=== PATIENT | male | born 1945 | race Caucasian/White ===

== ENCOUNTER 2016-11-02 08:48 | Outpatient (CLI) | payer MEDICARE | END 2016-11-02 08:49 | disposition home or self-care (01) | DX: Z85.048 Personal history of other malignant neoplasm of rectum, rectosigmoid junction, and anus (principal); Z86.010 Personal history of colon polyps ==

== ENCOUNTER 2016-12-21 07:58 | Outpatient (CLI) | payer MEDICARE ==
[2016-12-21] MEDS ORDERED: IOPAMIDOL-300 50 ML VIAL PO ONE (09:45)
[2016-12-21] MEDS ORDERED: IOPAMIDOL-300 100 ML VIAL IVP ONE (09:45)
== END 2016-12-21 07:59 | disposition home or self-care (01) ==
DX: R19.09 Other intra-abdominal and pelvic swelling, mass and lump (principal); K76.9 Liver disease, unspecified; M89.8X8 Other specified disorders of bone, other site
CPT/HCPCS: 36415; 74177; 82565; Q9967

== ENCOUNTER 2018-03-10 15:37 | Inpatient (IN) | payer MEDICARE, OTHER ==
[2018-03-10] MEDS ORDERED: ONDANSETRON 4 MG/2 ML VIAL IVP PRN (16:02)
[2018-03-10] MEDS ORDERED: PROCHLORPERAZINE 10 MG/2 ML VIAL IVP PRN (16:02)
[2018-03-10] MEDS ORDERED: ACETAMINOPHEN 325 MG TABLET PO PRN (16:02)
[2018-03-10] MEDS ORDERED: ZOLPIDEM 5 MG TABLET PO PRN (16:02)
--- NOTE | 2018-03-10 16:15 | HISTORY & PHYSICAL EXAMINATION ---
Chief Complaint - Chief Complaint Chief Complaint: loss of appetite History of Present Illness - Admitted From Admitted From:: [facility] - History Obtained From History obtained from: pt - History of Present Illness HPI Comment/Other: Mr. 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 Pt has been treated 8 cycles of chemotherapy, then he had on chemotherapy holiday. CT on January of 2018 showed he had mild progression in the liver and lung masses, thus he started on new chemotherapy. He finished the two cycles of new treatment. Then he developed loss of appetite. For 5 days, he only drunk some juice and water, no other foods. He also developed nausea and diarrhea since this new treatment. Pt denies fever, chill, cough, chest pain, shortness of breath, abdominal pain, headache, vision changing, dysuria, hemotauria, GI bleeding. Pt is directly admitted from [facility] for observation. History - Past Medical History Cardiovascular: reports: Hypertension Respiratory: reports: None Endocrine/Autoimmune: reports: None GI: reports: None : reports: None HEENT: reports: None Psych: reports: None Musculoskeletal: reports: None Derm: reports: None MRSA Hx?: No - Family & Social History Family History: Mother: (Dad was from blood disorder at ago 75 yrs ), CAD, Father: Family History Comment/Other: Pt is living with his at [place]. Pt had two children. Living arrangement: At home Living Situation: With spouse/s.o. Social History Notes: pt deneis cigarette smoking, alcohol and drug abuse. 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 - Substance History Use: Uses substance without health or social issues: NONE Abuse: Recurrent use of substance despite neg consequences: NONE Dependence: Experiences withdrawal or developed tolerances: NONE - POLST POLST Status: DNR Meds/Allgy - Home Medications Home Medications: Ambulatory Orders Medication Instructions Recorded Confirmed Cholecalciferol (Vitamin D3) 2,000 unit PO DAILY 04/26/17 03/10/18 [Vitamin D] Loperamide [Imodium] 2 mg PO DAILY 04/26/17 03/10/18 Magnesium Oxide [Magnesium] 400 mg PO DAILY 04/26/17 03/10/18 LORazepam [Ativan] 0.5 mg PO Q6H PRN #30 tablet 03/08/18 03/10/18 Cyanocobalamin (Vitamin B-12) 5,000 mcg PO DAILY 03/10/18 03/10/18 [Vitamin B-12] Lidocaine/Prilocaine [Lido-Prilo 1 applic TOP PRN PRN 03/10/18 03/10/18 Joey Pack] Lisinopril [Zestril] 5 mg PO DAILY 03/10/18 03/10/18 Ondansetron [Ondansetron Odt] 8 mg PO Q8H PRN 03/10/18 03/10/18 Prochlorperazine [Compazine] 5 - 10 mg PO Q6H PRN 03/10/18 03/10/18 hydroCHLOROthiazide 25 mg PO DAILY 03/10/18 03/10/18 [Hydrochlorothiazide] - Allergies Allergies/Adverse Reactions: Allergies Allergy/AdvReac Type Severity Reaction Status Date / Time No Known Drug Allergies Allergy Verified 01/02/15 16:08 Review of Systems - Constitutional Constitutional: reports: Fatigue, Weakness, Poor appetite. denies: Fever, Chills, Malaise, Diaphoresis, Night sweats - Eyes Eyes: denies: Pain, Irritation, Amaurosis, Blurred vision, Spots in vision, Field loss, Vision loss, Dipolpia - Ears, Nose & Throat Ears, Nose & Throat: denies: Ear pain, Hearing loss, Tinnitus, Vertigo, Nasal pain, Nasal discharge, Nosebleeds, Nasal obstruction, Postnasal drainage, Sore throat, Mouth lesions, Bleeding gums - Cardiovascular Cariovascular: denies: Irregular heart rate, Palpitations, Chest pain, Edema, Lightheadedness, Syncope, Exertional dyspnea, Decr. exercise tolerance - Respiratory Respiratory: denies: Cough, Sputum production, Wheezing, Snoring, Hemoptysis, Orthopnea, SOB at rest, SOB with exertion - Gastrointestinal Gastrointestinal: reports: Diarrhea, Nausea, Poor appetite. denies: Abdominal pain, Abdominal distention, Constipation, Change in bowel habits, Rectal bleeding, Black stools, Bloody stools, Vomiting, Bile emesis, Gomez blood emesis , Coffee grounds emesis, Reflux/heartburn, Bloating - Genitourinary Genitourinary: denies: Dysuria, Frequency, Urgency, Hematuria, Incontinence, Flank pain, Nocturia, Urethral discharge - Musculoskeletal Musculoskeletal: denies: Muscle pain, Back pain, Muscle aches, Stiffness, Limited range of motion, Muscle weakness, Gout, Joint pain - Integumentary Integumentary: denies: Rash, Pruritis, Lesions, Lumps, Pigment changes - Neurological Neurological: reports: General weakness. denies: Focal weakness, Headache, Dizziness, Numbness, Memory problems, Pre-existing deficit, Abnormal gait, Seizures, Incoordination, Slurred speech - Psychiatric Psychiatric: denies: Depression, Anxiety, Suicidal, Delusions, Hallucinations, Homicidal - Endocrine Endocrine: denies: Polyuria, Polydypsia, Polyphagia, Intolerance to cold - Hematologic/Lymphatic Hematologic/Lymphatic: denies: Anemia, Bruising, Petechiae, Blood clots, Lymphadenopathy, Bleeding tendencies, Recurrent infections Exam - Vital Signs Reviewed Vital Signs: Yes - Physical Exam General Appearance: positive: No acute distress, Alert. negative: Lethargic Eyes Bilateral: positive: Normal inspection, PERRL, No lid inflammation, Conjunctivae nml ENT: positive: ENT inspection nml, Pharynx nml, No signs of dehydration. negative: Purulent nasal drainage, Pharyngeal erythema, Oral lesions Neck: positive: Nml inspection, Thyroid nml, No JVD, Trachea midline. negative : Thyromegaly, Lymphadenopathy (R), Lymphadenopathy (L), Stiff neck, Carotid bruit, Swelling/bruising, Tracheal deviation Respiratory: positive: Chest non-tender, No respiratory distress, Breath sounds nml. negative: Wheezes, Rales, Rhonchi Cardiovascular: positive: Regular rate & rhythm, No murmur, No gallop. negative : Irregularly irregular, Extrasystoles, Tachycardia, Bradycardia, Systolic murmur, Diastolic murmur Peripheral Pulses: positive: 2+ Abdomen: positive: Non-tender, No organomegaly, Nml bowel sounds, No distention. negative: Tenderness, Guarding, Rebound Back: positive: Nml inspection. negative: CVA tenderness (R), CVA tenderness (L ) Skin: positive: Color nml, No rash, Warm, Dry. negative: Cyanosis, Diaphoresis , Pallor Extremities: positive: Non-tender, Full ROM, Nml appearance. negative: Calf tenderness, Joint swelling, Alee's sign/cords Neurologic/Psychiatric: positive: Oriented x3, Sensation nml, Mood/affect nml. negative: Sensory loss, Facial droop, Slurred/abnml speech, Depressed mood/ affect Conclusion/Plan - Problem List (1) Loss of appetite Conclusion/Plan: it appear from ongoing chemotherapy and metastatic cancer D5 NS with 20 meq KCL liquid diet advanced as tolerated daily lab monitor, pre-albumin (2) Malnutrition Conclusion/Plan: it appear from ongoing chemotherapy and metastatic cancer. consult mid wife, follow up support test pre-albumin (3) Neutropenia Conclusion/Plan: WBC 1.8 today, neutropenia precaution. pt denies fever, chill. (4) Rectal cancer metastasized to liver Conclusion/Plan: follow up out-pt oncologist support (6) Hypomagnesemia Conclusion/Plan: replacement of Mag, check (7) Hyponatremia Conclusion/Plan: it appears hypovolume hyponatremia IVF of D5 NS lab monitor (8) Nausea Conclusion/Plan: antiemesis PRN, evaluation and treatment underline medical issue (9) Diarrhea Conclusion/Plan: it appears from chemotherapy side effect Imodium PRN, resome home meds support, IVF D5 NS continue lab monitor (10) DVT prophylaxis Conclusion/Plan: SCD and Lovenox, pt has metastatic rectal cancer - Lab Results Fish Bones: 03/11/18 06:15 03/11/18 06:15 Core Measures - Anticipated LOS I expect patient to be DC'd or transferred within 96 hours.: Yes - DVT/VTE - Prophylaxis VTE/DVT Device ordered at admit?: Yes VTE/DVT Prophylaxis med ordered at admit?: Yes
[2018-03-10] MEDS ORDERED: DEXTROSE 5%-0.45% NACL 1,000 ML IV SCH (17:00)
[2018-03-10] MEDS ORDERED: GI COCKTAIL 120 ML BOTTLE PO PRN (17:25)
[2018-03-10] MEDS: SODIUM CHLORIDE FLUSH 0.9% 10 ML SYRINGE IVP SCH (17:29)
[2018-03-10 17:39] LABS: BASOPHILS % (AUTO) 0.1 %; EOSINOPHILS % (AUTO) 0.2 %; HGB - HEMOGLOBIN 10.2 g/dL (14.0-18.0); LYMPHOCYTES % (AUTO) 6.9 %; MEAN CORPUSCULAR HGB CONC 33.2 g/dL (32.0-36.0); MEAN CORPUSCULAR VOLUME 93.4 fL (80.0-94.0); MEAN PLATELET VOLUME 7.5 fL (7.4-11.4); MONOCYTES % (AUTO) 24.9 %; NEUTROPHILS % (AUTO) 67.9 %; PLT - PLATELET COUNT 192 10^3/uL (130-450); RED BLOOD COUNT 3.29 10^6/uL (4.70-6.10); RED CELL DISTRIBUTION WIDTH 12.8 % (12.0-15.0)
[2018-03-10 17:51] LABS: ALBUMIN 2.6 g/dL (3.2-5.5); BILIRUBIN,TOTAL 0.9 mg/dL (0.2-1.0); CALCIUM 7.7 mg/dL (8.5-10.3); CREATININE 1.8 mg/dL (0.6-1.2); MAGNESIUM 1.6 mg/dL (1.7-2.8); PHOSPHORUS 3.2 mg/dL (2.5-4.6); TOTAL PROTEIN 5.3 g/dL (6.7-8.2); WHITE BLOOD COUNT 1.8 x10^3/uL (4.8-10.8)
[2018-03-10 17:53] LABS: ABNORMAL LYMPHS % (MANUAL) 0 %
[2018-03-10 18:23] LABS: BAND NEUTROPHILS % (MANUAL) 22 %; DIFFERENTIAL COMMENT MANUAL DIFFERENTIAL; LYMPHOCYTES # (MANUAL) 0.2 10^3/uL (1.5-3.5); LYMPHOCYTES % (MANUAL) 13 %; MONOCYTES # (MANUAL) 0.3 10^3/uL (0.0-1.0); NEUTROPHILS # (MANUAL) 1.2 10^3/uL (1.5-6.6); NEUTROPHILS % (MANUAL) 47 %; PLATELET ESTIMATE, MANUAL NORMAL (130-450,000) (NORMAL); PLATELET MORPHOLOGY NORMAL APPEARANCE (NORMAL); RBC MORPHOLOGY (MULTIPLE) NORMAL APPEARANCE (NORMAL)
[2018-03-10] MEDS ORDERED: LORazepam 0.5 MG TABLET PO PRN (18:32)
[2018-03-10] MEDS ORDERED: cloNIDine 0.1 MG TABLET PO PRN (18:51)
[2018-03-10] MEDS ORDERED: MAGNESIUM SULFATE 1 GM in SODIUM CHLORIDE 0.9% 50 ML IV ONE (19:00)
[2018-03-10] MEDS ORDERED: MAGNESIUM SULFATE IV ONE (19:08)
[2018-03-10] MEDS ORDERED: SODIUM CHLORIDE 0.9% IV ONE (19:08)
[2018-03-10] MEDS: CALCIUM CITRATE 250 MG TABLET PO SCH (19:31)
[2018-03-10] MEDS: ENOXAPARIN 40 MG/0.4 ML SYRINGE SUBQ SCH (19:33)
[2018-03-10] MEDS: D5NS W/20 MEQ KCL 1,000 ML IV SCH (19:49)
[2018-03-10] MEDS ORDERED: LORazepam 2 MG/ML VIAL IVP STA (19:53)
[2018-03-11] MEDS: LOPERAMIDE 2 MG CAPSULE PO PRN ×3 (02:10→16:17)
[2018-03-11] MEDS: D5NS W/20 MEQ KCL 1,000 ML IV SCH (06:10)
[2018-03-11] MEDS: SODIUM CHLORIDE FLUSH 0.9% 10 ML SYRINGE IVP SCH ×4 (06:20→20:42)
[2018-03-11] MEDS: SODIUM CHLORIDE FLUSH 0.9% 10 ML SYRINGE IVP PRN ×3 (06:21→19:55)
[2018-03-11 06:38] LABS: EOSINOPHILS % (AUTO) 0.1 %; HGB - HEMOGLOBIN 8.8 g/dL (14.0-18.0); LYMPHOCYTES % (AUTO) 3.8 %; MEAN CORPUSCULAR HEMOGLOBIN 30.9 pg (27.0-31.0); MEAN CORPUSCULAR HGB CONC 33.5 g/dL (32.0-36.0); MEAN CORPUSCULAR VOLUME 92.3 fL (80.0-94.0); MEAN PLATELET VOLUME 7.5 fL (7.4-11.4); MONOCYTES % (AUTO) 28.9 %; NEUTROPHILS % (AUTO) 67.2 %; PLT - PLATELET COUNT 181 10^3/uL (130-450); RED BLOOD COUNT 2.84 10^6/uL (4.70-6.10); RED CELL DISTRIBUTION WIDTH 12.8 % (12.0-15.0)
[2018-03-11 06:45] LABS: WHITE BLOOD COUNT 1.8 x10^3/uL (4.8-10.8)
[2018-03-11 06:46] LABS: ABNORMAL LYMPHS % (MANUAL) 0 %
[2018-03-11 06:53] LABS: ALBUMIN 2.3 g/dL (3.2-5.5); BILIRUBIN,TOTAL 0.6 mg/dL (0.2-1.0); CALCIUM 7.6 mg/dL (8.5-10.3); CREATININE 1.5 mg/dL (0.6-1.2); TOTAL PROTEIN 4.6 g/dL (6.7-8.2)
[2018-03-11 07:16] LABS: BAND NEUTROPHILS % (MANUAL) 15 %; DIFFERENTIAL COMMENT MANUAL DIFFERENTIAL; LYMPHOCYTES # (MANUAL) 0.2 10^3/uL (1.5-3.5); LYMPHOCYTES % (MANUAL) 13 %; MONOCYTES # (MANUAL) 0.3 10^3/uL (0.0-1.0); NEUTROPHILS # (MANUAL) 1.3 10^3/uL (1.5-6.6); NEUTROPHILS % (MANUAL) 56 %; PLATELET ESTIMATE, MANUAL NORMAL (130-450,000) (NORMAL); RBC MORPHOLOGY (MULTIPLE) NORMAL APPEARANCE (NORMAL)
[2018-03-11] MEDS ORDERED: CALCIUM GLUCONATE 1,000 MG in SODIUM CHLORIDE 0.9% 50 ML IV ONE (07:37)
[2018-03-11] MEDS ORDERED: D5NS W/20 MEQ KCL 1,000 ML IV SCH ×2 (08:18→11:09)
--- NOTE | 2018-03-11 08:58 | XRAY Report ---
EXAM: CHEST RADIOGRAPHY EXAM DATE: 03/11/2018 08:44 AM. CLINICAL HISTORY: Shortness of breath. COMPARISON: 02/08/2018. 11/10/2017. TECHNIQUE: 1 view. FINDINGS: Lungs/Pleura: Patchy left basilar opacity. No vascular congestion. No pneumothorax. Lung volumes are decreased. Mediastinum: Heart size is normal. Aorta is mildly tortuous. Aortic atherosclerosis. Other: Right IJ portacatheter the tip in the lower SVC. Healed right-sided rib fractures. IMPRESSION: 1. Patchy left basilar consolidation/atelectasis. 2. No vascular congestion. [facility] Referring Provider Line: [phone] SITE ID: [id number]
[2018-03-11] MEDS ORDERED: FAMOTIDINE 20 MG TABLET PO SCH (09:00)
[2018-03-11] MEDS: CYANOCOBALAMIN 500 MCG TABLET PO SCH ×2 (10:05→10:20)
[2018-03-11] MEDS: CHOLECALCIFEROL 1,000 UNIT TABLET PO SCH (10:06)
[2018-03-11] MEDS: ENOXAPARIN 40 MG/0.4 ML SYRINGE SUBQ SCH (10:20)
[2018-03-11] MEDS: POLYETHYLENE GLYCOL 3350 17 GM PACKET PO SCH (10:21)
[2018-03-11] MEDS: CALCIUM CITRATE 250 MG TABLET PO SCH (10:22)
[2018-03-11] MEDS ORDERED: ACETAMINOPHEN 1,000 MG/100 ML 100 ML IV PRN (11:15)
[2018-03-11] MEDS: CEFEPIME 1 GM in SODIUM CHLORIDE 0.9% MINIBAG 100 ML IV SCH ×2 (11:58→19:55)
[2018-03-11] MEDS: PANTOPRAZOLE 40 MG VIAL IVP SCH (14:27)
--- NOTE | 2018-03-11 16:17 | PROVIDER PROGRESS NOTE ---
Subjective - Prog Note Date Prog Note Date: 03/11/18 - Subjective Pt reports feeling: No change Subjective: pt report he still has poor appetite. Pt also report some shortness of breath, cough, and wheezing. Denies fever, chill, and chest pain. Current Medications - Current Medications Current Medications: Active Medications Acetaminophen (Tylenol) 650 mg PO Q4HR PRN PRN Reason: Pain 1 to 4 Calcium Citrate () 250 mg PO DAILY [facility] Last Admin: 03/11/18 10:22 Dose: Not Given Cholecalciferol (Vitamin D3) 2,000 unit PO DAILY [facility] Last Admin: 03/11/18 10:06 Dose: 2,000 unit Clonidine HCl (Catapres) 0.1 mg PO BID PRN PRN Reason: Hypertensive Emergency Cyanocobalamin (Vitamin B-12) 5,000 mcg PO DAILY [facility] Last Admin: 03/11/18 10:20 Dose: Not Given Enoxaparin Sodium (Lovenox) 40 mg SUBQ DAILY [facility] Last Admin: 03/11/18 10:20 Dose: Not Given Heparin Sodium (Beef Lung) () 30 - 50 unit IVP PRN PRN PRN Reason: Port Protocol (<24 hours) Last Admin: 03/11/18 06:21 Dose: 50 unit Cefepime HCl 1 gm/ Sodium (Chloride) 100 mls @ 200 mls/hr IV Q8H [facility] Last Infusion: 03/11/18 12:44 Dose: Infused Potassium Chloride/Dextrose/Sod Cl () 1,000 mls @ 85 mls/hr IV .[id number] [facility] Last Admin: 03/11/18 11:25 Dose: Not Given Acetaminophen (Ofirmev) 100 mls @ 400 mls/hr IV Q6HR PRN PRN Reason: PAIN Last Infusion: 03/11/18 11:59 Dose: Infused Loperamide HCl (Imodium) 2 mg PO QID PRN PRN Reason: Diarrhea Last Admin: 03/11/18 16:17 Dose: 2 mg Lorazepam (Ativan) 0.5 mg PO Q6H PRN PRN Reason: Nausea / Vomiting Multi-Ingredient Mouthwash/Gargle () 30 ml PO Q6H PRN PRN Reason: Heartburn Last Admin: 03/10/18 17:38 Dose: 30 ml Ondansetron HCl (Zofran Inj) 4 mg IVP Q6HR PRN PRN Reason: Nausea / Vomiting Pantoprazole Sodium (Protonix) 40 mg IVP QDAC [facility] Last Admin: 03/11/18 14:27 Dose: 40 mg Polyethylene Glycol (Miralax) 17 gm PO DAILY [facility] Last Admin: 03/11/18 10:21 Dose: Not Given Prochlorperazine Edisylate (Compazine Inj) 10 mg IVP Q6HR PRN PRN Reason: Nausea / Vomiting Sodium Chloride (Normal Saline Flush 0.9%) 10 ml IVP PRN PRN PRN Reason: NEEDED PER PROVIDER ORDERS Last Admin: 03/11/18 14:27 Dose: 10 ml Sodium Chloride (Normal Saline Flush 0.9%) 10 ml IVP 0100,0900,1700 [facility] Last Admin: 03/11/18 12:05 Dose: Not Given Sodium Chloride (Normal Saline Flush 0.9%) 20 ml IVP PRN PRN PRN Reason: After Blood Draw Last Admin: 03/11/18 06:21 Dose: 20 ml Tbo-Filgrastim (Granix) 300 mcg SUBQ DAILY [facility] Zolpidem Tartrate (Ambien) 5 mg PO QPM PRN PRN Reason: Insomnia Cholecalciferol (Vitamin D3) [Vitamin D] 2,000 unit PO DAILY 04/26/17 Loperamide [Imodium] 2 mg PO DAILY 04/26/17 Magnesium Oxide [Magnesium] 400 mg PO DAILY 04/26/17 Cyanocobalamin (Vitamin B-12) [Vitamin B-12] 5,000 mcg PO DAILY 03/10/18 Lidocaine/Prilocaine [Lido-Prilo Joey Pack] 1 applic TOP PRN PRN 03/10/18 Lisinopril [Zestril] 5 mg PO DAILY 03/10/18 Ondansetron [Ondansetron Odt] 8 mg PO Q8H PRN 03/10/18 Prochlorperazine [Compazine] 5 - 10 mg PO Q6H PRN 03/10/18 hydroCHLOROthiazide [Hydrochlorothiazide] 25 mg PO DAILY 03/10/18 Objective - Vital Signs/Intake & Output Reviewed Vital Signs: Yes Vital Signs: Vital Signs x48h Temp Pulse Pulse Resp BP Pulse Ox 03/11/18 15:31 36.7 C 99 22 164/62 H 97 03/11/18 14:22 36.5 C 99 24 153/60 H 96 03/11/18 12:06 36.6 C 99 24 115/59 L 95 Intake & Output: Intake & Output 03/08/18 03/09/18 03/10/18 03/11/18 23:59 23:59 23:59 23:59 Intake Total 587 2422.083 Balance 587 2422.083 - Objective General Appearance: positive: No acute distress, Alert. negative: Lethargic Eyes Bilateral: positive: Normal inspection, PERRL, No lid inflammation, Conjunctivae nml ENT: positive: ENT inspection nml, Pharynx nml, No signs of dehydration. negative: Purulent nasal drainage, Pharyngeal erythema, Oral lesions Neck: positive: Nml inspection, Thyroid nml, No JVD, Trachea midline. negative : Thyromegaly, Lymphadenopathy (R), Lymphadenopathy (L), Stiff neck, Carotid bruit, Swelling/bruising, Tracheal deviation Respiratory: positive: Chest non-tender, No respiratory distress, Wheezes. negative: Rales, Rhonchi Cardiovascular: positive: Regular rate & rhythm, No gallop, Systolic murmur, Diastolic murmur. negative: Irregularly irregular, Extrasystoles, Tachycardia, Bradycardia Peripheral Pulses: 2+ Radial (R), 2+ Radial (L), 2+ Dorsalis pedis (R), 2+ Dorsalis pedis (L) Abdomen: positive: Non-tender, No organomegaly, Nml bowel sounds, No distention. negative: Tenderness, Guarding, Rebound Back: positive: Nml inspection. negative: CVA tenderness (R), CVA tenderness (L ) Skin: positive: Color nml, No rash, Warm, Dry. negative: Cyanosis, Diaphoresis , Pallor Extremities: positive: Non-tender, Full ROM, Nml appearance. negative: Pedal edema, Calf tenderness, Joint swelling, Alee's sign/cords Neurologic/Psychiatric: positive: Oriented x3, Motor nml, Sensation nml, Mood/ affect nml. negative: Sensory loss, Facial droop, Slurred/abnml speech, Depressed mood/affect - Lab Results Fish Bones: 03/11/18 06:15 03/11/18 06:15 Other Labs: Lab Results x24hrs 03/11/18 03/11/18 03/10/18 Range/Units 06:15 06:15 17:33 WBC 1.8 L* (4.8-10.8) x10^3/uL RBC 2.84 L (4.70-6.10) 10^6/uL Hgb 8.8 L (14.0-18.0) g/dL Hct 26.2 L (42.0-52.0) % MCV 92.3 (80.0-94.0) fL MCH 30.9 (27.0-31.0) pg MCHC 33.5 (32.0-36.0) g/dL RDW 12.8 (12.0-15.0) % Plt Count 181 (130-450) 10^3/uL MPV 7.5 (7.4-11.4) fL Neut # Not Reportable Lymph # Not Reportable Clark # Not Reportable Eos # Not Reportable Baso # Not Reportable Absolute Nucleated RBC Not Reportable Total Counted 100 Band Neuts % (Manual) 15 H (0 - 10) % Abnorm Lymph % (Manual) 0 % Nucleated RBC % Not Reportable Neutrophils # (Manual) 1.3 L (1.5-6.6) 10^3/uL Lymphocytes # (Manual) 0.2 L (1.5-3.5) 10^3/uL Monocytes # (Manual) 0.3 (0.0-1.0) 10^3/uL Eosinophils # (Manual) 0.0 (0-0.7) 10^3/uL Basophils # (Manual) 0.0 (0-0.1) 10^3/uL Differential Comment MANUAL DIFFERENTIAL Manual Slide Review WBC Morphology (NORMAL) Platelet Estimate NORMAL (130-450,000) (NORMAL) Platelet Morphology (NORMAL) RBC Morph Micro Appear NORMAL APPEARANCE (NORMAL) Sodium 133 L 133 L (135-145) mmol/L Potassium 3.5 3.5 (3.5-5.0) mmol/L Chloride 104 103 (101-111) mmol/L Carbon Dioxide 24 21 (21-32) mmol/L Anion Gap 5.0 L 9.0 (6-13) BUN 50 H 61 H (6-20) mg/dL Creatinine 1.5 H 1.8 H (0.6-1.2) mg/dL Estimated GFR (MDRD) 46 L 37 L (>89) Glucose 149 H 145 H (70-100) mg/dL Calcium 7.6 L 7.7 L (8.5-10.3) mg/dL Phosphorus 3.2 (2.5-4.6) mg/dL Magnesium 1.6 L (1.7-2.8) mg/dL Total Bilirubin 0.6 0.9 (0.2-1.0) mg/dL AST 16 16 (10-42) IU/L ALT 16 16 (10-60) IU/L Alkaline Phosphatase 47 49 (42-121) IU/L Total Protein 4.6 L 5.3 L (6.7-8.2) g/dL Albumin 2.3 L 2.6 L (3.2-5.5) g/dL Globulin 2.3 2.7 (2.1-4.2) g/dL Albumin/Globulin Ratio 1.0 1.0 (1.0-2.2) Prealbumin 12 L (18-45) mg/dL 05//18 Range/Units 17:33 WBC 1.8 L* (4.8-10.8) x10^3/uL RBC 3.29 L (4.70-6.10) 10^6/uL Hgb 10.2 L (14.0-18.0) g/dL Hct 30.7 L (42.0-52.0) % MCV 93.4 (80.0-94.0) fL MCH 31.0 (27.0-31.0) pg MCHC 33.2 (32.0-36.0) g/dL RDW 12.8 (12.0-15.0) % Plt Count 192 (130-450) 10^3/uL MPV 7.5 (7.4-11.4) fL Neut # UNIFORMS SALES REPRESENTATIVE Lymph # UNIFORMS SALES REPRESENTATIVE Clark # UNIFORMS SALES REPRESENTATIVE Eos # UNIFORMS SALES REPRESENTATIVE Baso # UNIFORMS SALES REPRESENTATIVE Absolute Nucleated RBC UNIFORMS SALES REPRESENTATIVE Total Counted 100 Band Neuts % (Manual) 22 H (0 - 10) % Abnorm Lymph % (Manual) 0 % Nucleated RBC % UNIFORMS SALES REPRESENTATIVE Neutrophils # (Manual) 1.2 L (1.5-6.6) 10^3/uL Lymphocytes # (Manual) 0.2 L (1.5-3.5) 10^3/uL Monocytes # (Manual) 0.3 (0.0-1.0) 10^3/uL Eosinophils # (Manual) 0.0 (0-0.7) 10^3/uL Basophils # (Manual) 0.0 (0-0.1) 10^3/uL Differential Comment MANUAL DIFFERENTIAL Manual Slide Review Indicated WBC Morphology 1+ TOXIC GRANULATION (NORMAL) Platelet Estimate NORMAL (130-450,000) (NORMAL) Platelet Morphology NORMAL APPEARANCE (NORMAL) RBC Morph Micro Appear NORMAL APPEARANCE (NORMAL) Sodium (135-145) mmol/L Potassium (3.5-5.0) mmol/L Chloride (101-111) mmol/L Carbon Dioxide (21-32) mmol/L Anion Gap (6-13) BUN (6-20) mg/dL Creatinine (0.6-1.2) mg/dL Estimated GFR (MDRD) (>89) Glucose (70-100) mg/dL Calcium (8.5-10.3) mg/dL Phosphorus (2.5-4.6) mg/dL Magnesium (1.7-2.8) mg/dL Total Bilirubin (0.2-1.0) mg/dL AST (10-42) IU/L ALT (10-60) IU/L Alkaline Phosphatase (42-121) IU/L Total Protein (6.7-8.2) g/dL Albumin (3.2-5.5) g/dL Globulin (2.1-4.2) g/dL Albumin/Globulin Ratio (1.0-2.2) Prealbumin (18-45) mg/dL ABX Reporting Has patient been on IV antibiotics over the past 48 hours?: Yes Assessment/Plan - Problem List (1) Loss of appetite Impression: Conclusion/Plan: pt report he still has no much appetite consult with repairer art objects, follow up full liquid diet, advanced as tolerated. it appear from ongoing chemotherapy and metastatic cancer D5 NS with 20 meq KCL liquid diet advanced as tolerated daily lab monitor, pre-albumin (2) Malnutrition Conclusion/Plan: malnutrition, pt was loss of appetite encourage pt eat consult repairer art objects it appear from ongoing chemotherapy and metastatic cancer. consult repairer art objects, follow up support test pre-albumin (3) Neutropenia Conclusion/Plan: today WBC 1.8. per MAC UNIFORMS SALES REPRESENTATIVE Ms. Basurto, recommend, order Granix for elevation of Neuroph neutropenia precaution WBC 1.8 today, neutropenia precaution. pt denies fever, chill. (4) Rectal cancer metastasized to liver Conclusion/Plan: follow up out-pt oncologist support (6) Hypomagnesemia Conclusion/Plan: replacement of Mag, check (7) Hyponatremia Conclusion/Plan: Na133, mild hyponatremia, replacement, lab monitor it appears hypovolume hyponatremia IVF of D5 NS lab monitor (8) Nausea Conclusion/Plan: pt report he is better controlled continue antiemesis PRN antiemesis PRN, evaluation and treatment underline medical issue (9) Diarrhea Conclusion/Plan: better controlled. it appears from chemotherapy side effect Imodium PRN, resome home meds support, IVF D5 NS continue lab monitor (10) Pneumonia/wheezing pt developed SOB and wheezing, and cough but Sats of O2 is 97% on room air. ordered CXR, which reveals pneumonia start Cefepim, blood culture INH treatment with Xopenix and Ipro, PRN for O2 NC supplement. stop IVF now 20 mg Lasix once daily lab monitor, vital monitor (11) diastolic murmur/mitral regurgitation order ECHO ECHO revealed Severe AURORA with peak LVOT 275 mmHG. I discussed the test result with pt and his . I called Dr. Ni, rehabilitation specialist forensic analyst in [facility]. She recommend starting with beta-chun, then following on her office I gave the phone number to pt, and advise pt to call the [facility] [employer] to make an appointment to follow up
[2018-03-11] MEDS ORDERED: FUROSEMIDE 20 MG/2 ML VIAL IVP SCH (17:00)
[2018-03-11] MEDS ORDERED: METOPROLOL TARTRATE 25 MG TABLET PO SCH (17:00)
[2018-03-11] MEDS ORDERED: IPRATROPIUM 0.2 MG/ML NEB INH SCH (17:00)
[2018-03-11] MEDS ORDERED: methylPREDNISolone SUCCINATE 40 MG/ML VIAL IVP SCH (17:00)
[2018-03-11] MEDS: LEVALBUTEROL 1.25 MG/3 ML NEB INH PRN (17:36)
[2018-03-11] MEDS: IPRATROPIUM 0.2 MG/ML NEB INH PRN (20:19)
[2018-03-11] MEDS: D5.45NS W/20 MEQ KCL 1,000 ML IV SCH (22:23)
[2018-03-12] MEDS: SODIUM CHLORIDE FLUSH 0.9% 10 ML SYRINGE IVP SCH ×2 (01:23→08:04)
[2018-03-12] MEDS: CEFEPIME 1 GM in SODIUM CHLORIDE 0.9% MINIBAG 100 ML IV SCH ×2 (04:20→12:07)
[2018-03-12] MEDS: LOPERAMIDE 2 MG CAPSULE PO PRN (04:37)
[2018-03-12] MEDS: SODIUM CHLORIDE FLUSH 0.9% 10 ML SYRINGE IVP PRN ×2 (06:39)
[2018-03-12] MEDS: PANTOPRAZOLE 40 MG VIAL IVP SCH (06:39)
[2018-03-12] MEDS: LEVALBUTEROL 1.25 MG/3 ML NEB INH PRN (07:35)
[2018-03-12] MEDS: IPRATROPIUM 0.2 MG/ML NEB INH PRN (07:35)
[2018-03-12 07:49] LABS: BASOPHILS % (AUTO) 0.1 %; EOSINOPHILS % (AUTO) 0.7 %; HGB - HEMOGLOBIN 7.5 g/dL (14.0-18.0); LYMPHOCYTES # (AUTO) 0.1 10^3/uL (1.5-3.5); MEAN CORPUSCULAR HEMOGLOBIN 31.6 pg (27.0-31.0); MEAN CORPUSCULAR HGB CONC 34.1 g/dL (32.0-36.0); MEAN CORPUSCULAR VOLUME 92.6 fL (80.0-94.0); MEAN PLATELET VOLUME 7.9 fL (7.4-11.4); MONOCYTES # (AUTO) 0.7 10^3/uL (0.0-1.0); MONOCYTES % (AUTO) 14.9 %; NEUTROPHILS % (AUTO) 81.3 %; PLT - PLATELET COUNT 161 10^3/uL (130-450); RED BLOOD COUNT 2.37 10^6/uL (4.70-6.10); RED CELL DISTRIBUTION WIDTH 12.7 % (12.0-15.0); WHITE BLOOD COUNT 4.9 x10^3/uL (4.8-10.8)
[2018-03-12 07:50] LABS: ALBUMIN/GLOBULIN RATIO 0.9 (1.0-2.2); BILIRUBIN,TOTAL 0.8 mg/dL (0.2-1.0); CALCIUM 7.4 mg/dL (8.5-10.3); CREATININE 1.6 mg/dL (0.6-1.2); MAGNESIUM 1.5 mg/dL (1.7-2.8); TOTAL PROTEIN 4.2 g/dL (6.7-8.2)
[2018-03-12] MEDS: POLYETHYLENE GLYCOL 3350 17 GM PACKET PO SCH (08:04)
[2018-03-12 08:07] LABS: RBC MORPHOLOGY (MULTIPLE) 2+ ANISOCYTOSIS (NORMAL)
[2018-03-12] MEDS: CALCIUM CITRATE 250 MG TABLET PO SCH (08:49)
[2018-03-12] MEDS: hydroCHLOROthiazide 25 MG TABLET PO SCH ×2 (08:49→09:14)
[2018-03-12] MEDS: CHOLECALCIFEROL 1,000 UNIT TABLET PO SCH (08:49)
[2018-03-12] MEDS: METOPROLOL TARTRATE 25 MG TABLET PO SCH ×2 (08:50→09:14)
[2018-03-12] MEDS: CYANOCOBALAMIN 500 MCG TABLET PO SCH (08:50)
[2018-03-12] MEDS: LISINOPRIL 5 MG TABLET PO SCH ×2 (08:51→09:14)
[2018-03-12] MEDS: ENOXAPARIN 40 MG/0.4 ML SYRINGE SUBQ SCH ×2 (08:51→09:13)
[2018-03-12] MEDS ORDERED: TBO-FILGRASTIM 300 MCG/0.5 ML SYRINGE SUBQ SCH (09:00)
[2018-03-12] MEDS ORDERED: MAGNESIUM OXIDE 400 MG TABLET PO SCH (09:00)
[2018-03-12] MEDS ORDERED: FUROSEMIDE 20 MG TABLET PO SCH (09:03)
[2018-03-12] MEDS ORDERED: CALCIUM GLUCONATE 1,000 MG in SODIUM CHLORIDE 0.9% 50 ML IV ONE (09:30)
[2018-03-12] MEDS: D5.45NS W/20 MEQ KCL 1,000 ML IV SCH (10:13)
--- NOTE | 2018-03-12 14:13 | Discharge Plan ---
Discharge Plan Disposition: Home, Self Care Condition: Poor Prescriptions: Amox/Clav 500/125 [Augmentin] 1 each PO Q12H #14 tablet Calcium Carbonate [Tums (Calcium Carbonate 500mg)] 500 mg PO Q4-6H PRN #20 tablet PRN Reason: Heartburn Ipratropium/Albuterol [Combivent Respimat] 4 gm IH Q6H PRN #1 aer.w.adap PRN Reason: Shortness Of Air/Wheezing Omeprazole 20 mg PO DAILY #15 tablet. Diet: Soft Activity Restrictions: Activity as Tolerated Shower Restrictions: No (fall precaution) Weight Bearing: Full Weight Instruction Topics: Creatinine Clearance, Blood Urea Nitrogen, Amoxicillin Clavulanic Acid tablets, Pneumonia, Esophagitis, Albuterol Ipratropium respiratory inhalation spray Combivent Respimat, Omeprazole tablets OTC Additional Instructions or Follow Up instructions: You may follow up your PCP in 2-3 days, follow up your oncologist as the schedule, follow up mushroom growing supervisor as out-pt. You may follow up a auto inspector as we discussed with the findings at ECHO study. You decline to have blood transfusion at this time. You are encouraged to increase your nutrition. Should your symptoms return or worsen, you may present ER or call 911 for help. You are welcomed to our service. Follow-Up Care: Dietitian, [facility] - Cardiac No Smoking: If you smoke, Please STOP! Call for help. Follow-up with: Billie Ledesma ARNP [Provider Admit Priv/Credential] -
--- NOTE | 2018-03-12 14:46 | DISCHARGE SUMMARY ---
Discharge Summary Discharge Date: 03/12/18 Discharging Provider: KERNS Primary Care Provider: Billie Luciano Condition at Discharge: Poor Discharge Disposition: 01 Home, Self Care Discharge Facility Name: home - DIAGNOSES Admission Diagnoses: (1) Loss of appetite (2) Malnutrition (3) Neutropenia (4) Rectal cancer metastasized to liver (6) Hypomagnesemia (7) Hyponatremia (8) Nausea (9) Diarrhea Discharge Diagnoses with Status of Each Condition: (1) Loss of appetite pt ate the breakfast and lunch, and state he felt much better and request to be d/c to home. pt is encourage to increase nutrition and follow up a single needle operator (2) Malnutrition pt ate the breakfast and lunch, felt much better. Pt was consulted by single needle operator in the hospital, and follow up the single needle operator. (3) Neutropenia resolved after prescribed Granix (4) Rectal cancer metastasized to liver follow up oncologist as out-pt (6) Hypomagnesemia continue home regime, managed by PCP (7) Hyponatremia resolved (8) Nausea resolved (9) Diarrhea resolved (10) Pneumonia/wheezing 95% Sats on room air. wheezing is resolved. No fever, chill. continue finishing antibiotics course, follow up PCP (11) diastolic murmur/mitral regurgitation discuss ECHO result with pt. I called Community Development Technician in [place] parking meter mechanic clinic. The parking meter mechanic recommend pt had Beta chun and follow up the parking meter mechanic as out-pt. I gave the phone to pt and advised pt make appointment to see her. Pt refused me prescribe Metoprolol to him for d/c to home, and pt refused to take Metoprolol at hospital per nurse reported. (12) anemia Pt's HGB is 7.5. Pt refused to have blood transfusion. Pt request to be d/c to home. Pt is advised to increase nutrition. - HPI History of Present Illness: refer from my HPI as the following: Mr. 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 Pt has been treated 8 cycles of chemotherapy, then he had on chemotherapy holiday. CT on January of 2018 showed he had mild progression in the liver and lung masses, thus he started on new chemotherapy. He finished the two cycles of new treatment. Then he developed loss of appetite. For 5 days, he only drunk some juice and water, no other foods. He also developed nausea and diarrhea since this new treatment. Pt denies fever, chill, cough, chest pain, shortness of breath, abdominal pain, headache, vision changing, dysuria, hemotauria, GI bleeding. Pt is directly admitted from [facility] clinic for observation. - ALLERGIES Allergies/Adverse Reactions: Allergies Allergy/AdvReac Type Severity Reaction Status Date / Time No Known Drug Allergies Allergy Verified 01/02/15 16:08 - MEDICATIONS Home Medications: Ambulatory Orders Medication Instructions Recorded Confirmed Cholecalciferol (Vitamin D3) 2,000 unit PO DAILY 04/26/17 03/10/18 [Vitamin D3] Loperamide [Imodium] 2 mg PO DAILY 04/26/17 03/10/18 Magnesium Oxide [Magnesium] 400 mg PO DAILY 04/26/17 03/10/18 LORazepam [Ativan] 0.5 mg PO Q6H PRN #30 tablet 03/08/18 03/10/18 Cyanocobalamin (Vitamin B-12) 5,000 mcg PO DAILY 03/10/18 03/10/18 [Vitamin B-12] Lidocaine/Prilocaine [Lido-Prilo 1 applic TOP PRN PRN 03/10/18 03/10/18 Joey Pack] Lisinopril [Zestril] 5 mg PO DAILY 03/10/18 03/10/18 Ondansetron [Ondansetron Odt] 8 mg PO Q8H PRN 03/10/18 03/10/18 Prochlorperazine [Compazine] 5 - 10 mg PO Q6H PRN 03/10/18 03/10/18 hydroCHLOROthiazide 25 mg PO DAILY 03/10/18 03/10/18 [Hydrochlorothiazide] Amox/Clav 500/125 [Augmentin] 1 each PO Q12H #14 tablet 03/12/18 Calcium Carbonate [Tums (Calcium 500 mg PO Q4-6H PRN #20 tablet 03/12/18 Carbonate 500mg)] Ipratropium/Albuterol [Combivent 4 gm IH Q6H PRN #1 aer.w.adap 03/12/18 Respimat] Omeprazole 20 mg PO DAILY #15 tablet. 03/12/18 - PHYSICAL EXAM AT DISCHARGE General Appearance: positive: No acute distress, Alert. negative: Lethargic Eyes Bilateral: positive: Normal inspection, PERRL, No lid inflammation, Conjunctivae nml ENT: positive: ENT inspection nml, Pharynx nml, No signs of dehydration. negative: Purulent nasal drainage, Pharyngeal erythema, Oral lesions Neck: positive: Nml inspection, Thyroid nml, No JVD. negative: Trachea midline , Thyromegaly, Lymphadenopathy (R), Lymphadenopathy (L), Stiff neck, Carotid bruit, Swelling/bruising, Tracheal deviation Respiratory: positive: Chest non-tender, No respiratory distress, Breath sounds nml. negative: Wheezes, Rales, Rhonchi Cardiovascular: positive: Regular rate & rhythm, No gallop, Diastolic murmur. negative: Irregularly irregular, Extrasystoles, Tachycardia, Bradycardia, JVD present Peripheral Pulses: positive: 2+ Abdomen: positive: Non-tender, No organomegaly, Nml bowel sounds, No distention. negative: Tenderness, Guarding, Rebound Back: positive: Nml inspection. negative: CVA tenderness (R), CVA tenderness (L ) Skin: positive: Color nml, No rash, Warm, Dry. negative: Cyanosis, Diaphoresis , Pallor Extremities: positive: Non-tender, Full ROM, Nml appearance. negative: Calf tenderness, Joint swelling, Alee's sign/cords Neurologic/Psychiatric: positive: Oriented x3, Sensation nml. negative: Sensory loss, Facial droop, Slurred/abnml speech, Depressed mood/affect - LABS Result Diagrams: 03/12/18 06:57 03/12/18 06:57 - FOLLOW UP Follow Up: You may follow up your PCP in 2-3 days, follow up your oncologist as the schedule, follow up single needle operator as out-pt. You may follow up a parking meter mechanic as we discussed with the findings at ECHO study. You decline to have blood transfusion at this time. You are encouraged to increase your nutrition. Should your symptoms return or worsen, you may present ER or call 911 for help. You are welcomed to our service. - TIME SPENT Time Spent in Discharge (Minutes): 55
[2018-03-12 15:21] VITALS: BP 135/55
== END 2018-03-12 16:15 | disposition home or self-care (01) | DRG 640 ==
LOC: OBS 15:37 → UNDOADMIN 15:37 → UNDOADMOB 16:02 → OBS 16:02 → INTOOBSV 16:02 → OBS 16:04 → OBSVTOIN 03-11 12:15 → MS2 03-11 14:21 → OBS 03-11 14:21 → UNDODISOB 03-12 16:15
PROVIDERS: ADMIT Nurse Practitioner Gerontology; ATTEND Nurse Practitioner Gerontology
DX: E46 Unspecified protein-calorie malnutrition (principal); J18.9 Pneumonia, unspecified organism; C20 Malignant neoplasm of rectum; C78.7 Secondary malignant neoplasm of liver and intrahepatic bile duct; E87.1 Hypo-osmolality and hyponatremia; K52.1 Toxic gastroenteritis and colitis; C79.51 Secondary malignant neoplasm of bone; C78.01 Secondary malignant neoplasm of right lung; C78.02 Secondary malignant neoplasm of left lung; R11.0 Nausea; T45.1X5A Adverse effect of antineoplastic and immunosuppressive drugs, initial encounter; D70.9 Neutropenia, unspecified; Z51.11 Encounter for antineoplastic chemotherapy; Z51.12 Encounter for antineoplastic immunotherapy; R53.83 Other fatigue; E86.0 Dehydration; L27.1 Localized skin eruption due to drugs and medicaments taken internally; G62.0 Drug-induced polyneuropathy; Z79.899 Other long term (current) drug therapy; Z66 Do not resuscitate; E83.42 Hypomagnesemia; I34.0 Nonrheumatic mitral (valve) insufficiency; T44.7X6A Underdosing of beta-adrenoreceptor antagonists, initial encounter; D64.9 Anemia, unspecified; I10 Essential (primary) hypertension; Z68.22 Body mass index [BMI] 22.0-22.9, adult; Z91.14 Patient's other noncompliance with medication regimen
CPT/HCPCS: 71045; 80053; 82565; 82607; 83735; 84100; 84134; 85025; 93306; 94640; 96361; 96365; 96367; 96372; 96375; 99214

== ENCOUNTER 2019-07-20 08:18 | Outpatient (CLI) | payer MEDICARE, OTHER ==
[2019-07-20] MEDS ORDERED: IOVERSOL 320 50 ML VIAL ONE (08:36)
[2019-07-20] MEDS ORDERED: IOVERSOL 320 100 ML VIAL IVP ONE ×2 (08:36→10:24)
[2019-07-20] MEDS ORDERED: IOVERSOL 320 50 ML VIAL PO ONE (10:24)
--- NOTE | 2019-07-20 11:37 | CT Report ---
Reason: RECTAL CANCER Procedure Date: 07/20/2019 Accession Number: [id number] / [id number] Procedure: CT - SOFT TISSUE NECK W CPT Code: FULL RESULT: CT SOFT TISSUE NECK WITH CONTRAST INDICATION: 74-year-old male with rectal cancer. Soft tissue neck CT has been requested for restaging. TECHNIQUE: 100 mL of Optiray 320 contrast were injected intravenously. The neck was scanned helically and the data was reconstructed into 2 mm axial images. In addition, sagittal and coronal reformations have been generated. In accordance with CT protocol optimization, one or more of the following dose reduction techniques were utilized for this exam: automated exposure control, adjustment of mA and/or KV based on patient size, or use of iterative reconstructive technique. COMPARISON: 07/08/2018. FINDINGS: The nasopharyngeal and oropharyngeal soft tissues are symmetric. Beam hardening artifact from metal dental hardware limits evaluation of the oral tongue. No obvious, enhancing mass lesion is demonstrated. No tongue base mass is demonstrated. There is paramedian displacement of both vocal folds, presumably related to phase of phonation or respiration. This somewhat limits evaluation of the larynx, however, no obvious mass is demonstrated. There is a small amount of bubbly material along the posterolateral wall of the trachea on the right, probably representing a small amount of adherent sputum. The imaged trachea is otherwise widely patent. The thyroid has a normal appearance. The submandibular and parotid glands are unremarkable. The carotid and vertebral arteries appear patent. Both internal jugular veins appear patent. No lymph nodes meeting the size criterion for malignancy are demonstrated within the neck. In addition, no necrotic lymph nodes are seen. Degenerative changes are demonstrated in the cervical spine. The regional bony structures are otherwise unremarkable. No lytic or destructive bone lesion is demonstrated. The middle ear cavities and imaged mastoid air cells appear clear. The imaged paranasal sinuses appear clear. No mass is identified in either orbits. No obvious acute pathology seen in the imaged brain. For evaluation of imaged upper chest please refer to the report for the patient's chest CT performed at same visit but dictated separately. IMPRESSION: Stable appearance of the neck when compared to previous study 07/08/2018. No significant pathology is demonstrated. In particular, no worrisome lymphadenopathy is identified.
--- NOTE | 2019-07-23 14:08 | CT Report ---
Reason: RECTAL CANCER Procedure Date: 07/20/2019 Accession Number: [id number] / [id number] Procedure: CT - CHEST W CPT Code: FULL RESULT: EXAM: CT CHEST WITH CONTRAST. EXAM DATE: 07/20/2019 10:18 AM. CLINICAL HISTORY: Rectal cancer. COMPARISONS: ABDOMEN/PELVIS W05/11/2019 11:08 AM. CHEST W05/11/2019 11:08 AM. TECHNIQUE: Routine helical CT imaging was performed through the chest. IV contrast: 100 mL Optiray 320. Reconstructions: Coronal and sagittal. In accordance with CT protocol optimization, one or more of the following dose reduction techniques were utilized for this exam: automated exposure control, adjustment of mA and/or KV based on patient size, or use of iterative reconstructive technique. FINDINGS: Lungs/Pleura: There is no effusion, consolidation, or pneumothorax. As before, multiple scattered pulmonary nodules are seen. Nodules have increased compared with prior study as below: 1. Right perihilar mass measures 3.8 x 3.0 cm, previously 2.9 x 2.5 cm (image 135/3) right lower lobe nodule measures 9 mm, previously 6 mm (image 180/3). 2. Right lower lobe lateral nodule measures 12 mm, previously 9 mm (image 234/3). 3. Left lower lobe pulmonary nodule measures 6 mm, previously 5 mm (image 274/3). Mediastinum: Normal. No adenopathy or masses. The heart and great vessels are normal. Bones: Unremarkable. Visualized Abdomen: See separate report. Other: Right sided [id number] is seen terminating in the mid to lower SVC region. IMPRESSION: Findings suggesting tumor progression with interval increase in size of multiple scattered bilateral pulmonary nodules and masses now measuring up to 3.8 cm, previously 2.9 cm. RADIA
--- NOTE | 2019-07-23 14:08 | CT Report ---
Reason: RECTAL CANCER Procedure Date: 07/20/2019 Accession Number: [id number] / [id number] Procedure: CT - Abdomen/Pelvis W CPT Code: FULL RESULT: EXAM: CT ABDOMEN AND PELVIS WITH CONTRAST. EXAM DATE: 07/20/2019 10:18 AM. CLINICAL HISTORY: Rectal cancer. COMPARISONS: ABDOMEN/PELVIS W/ 05/11/2019 11:08 AM. ABDOMEN/PELVIS W/ 01/18/2019 12:20 PM. TECHNIQUE: Routine helical CT imaging was performed through the abdomen and pelvis. IV contrast: 100 mL Optiray 320. Enteric contrast: Yes. Reconstructions: Coronal and sagittal. In accordance with CT protocol optimization, one or more of the following dose reduction techniques were utilized for this exam: automated exposure control, adjustment of mA and/or KV based on patient size, or use of iterative reconstructive technique. FINDINGS: Lung Bases: See separate report. Liver: Lobulated infiltrative mass in the lateral segment left hepatic lobe has increased now measuring up to 6.7 x 3.4 cm, previously 3.5 x 2.0 cm (image 13/3). Small nodule in the right hepatic lobe appears slightly increased measuring 11 mm, previously 10 mm (image 14/3). Other subtle subcentimeter liver lesions are not appreciably changed. No new liver mass. Gallbladder/Bile Ducts: Unremarkable. Spleen: Normal. Pancreas: Normal. Adrenal Glands: Normal. Kidneys: Normal. No masses or hydronephrosis. Peritoneal Cavity/Bowel: Postoperative changes related to distal colectomy is seen. A few minor scattered diverticula are seen in the left hemicolon. There is no evidence for diverticulitis or other intra-abdominal inflammatory process. No adenopathy. The appendix is not visualized, however, no inflammatory changes are seen in the right lower quadrant region. Pelvic Organs: Prostate gland is moderately enlarged measuring 6.7 cm in transverse diameter. There is eccentric wall thickening involving the left bladder wall, indeterminate (image 68/3) measuring up to 11 mm, previously 7 mm. As before, there are postoperative changes and scarring in the presacral space. A 12 mm nodular density in the presacral space is unchanged (image 60/3). Mild fat-containing bilateral inguinal hernias are seen. Vasculature: Diffuse aortic calcification is present. Bones: Degenerative changes and grade 1 anterolisthesis is seen at L5-S1 with associated bilateral pars defects. No acute osseous abnormality demonstrated. Other: None. IMPRESSION: 1. Findings suggesting tumor progression with increase in infiltrative nodular mass-like change in the lateral segment left hepatic lobe measuring up to 6.7 cm, previously 3.5 cm. 2. Status post distal colectomy with stable postoperative changes seen. 3. Moderate prostatomegaly and suspicious increasing eccentric left bladder wall thickening. Malignancy is not excluded. Consider correlation with direct visualization. 4. Mild fat-containing bilateral inguinal hernias. RADIA
== END 2019-07-20 08:19 | disposition home or self-care (01) ==
LOC: DI 08:18
PROVIDERS: ATTEND Physician Assistant
DX: C20 Malignant neoplasm of rectum (principal); R91.8 Other nonspecific abnormal finding of lung field; R16.0 Hepatomegaly, not elsewhere classified; Z90.49 Acquired absence of other specified parts of digestive tract; N40.0 Benign prostatic hyperplasia without lower urinary tract symptoms; N32.89 Other specified disorders of bladder; K40.20 Bilateral inguinal hernia, without obstruction or gangrene, not specified as recurrent
CPT/HCPCS: 70491; 71260; 74177; Q9967

== ENCOUNTER 2019-08-29 09:22 | Outpatient (CLI) | payer MEDICARE, OTHER ==
--- NOTE | 2019-08-29 19:41 | CONSULTATION NOTE ---
Palliative Care Follow Up - Referral Referring Provider: Dr. Destiney Moreno Time of Visit: [id number] Referral setting: [facility] [place] Referral Reason: Pain of neoplastic origin/Advanced Care Planning - Information Sources Records reviewed: Previous records reviewed History/Review of Systems obtained from: Patient, Family (Chanel s/o present) Exam limitations: No limitations - History of Present Illness Update Brief HPI Update: Is a 74-year-old gentleman with metastatic rectal cancer with lung and liver mets, originally diagnosed and received concurrent chemo radiation to the rectum and with Xeloda on 02/19/2017. His original surgery status was a post left hemicolectomy with lower anterior resection of the rectum in 05/2015. He has been on multiple lines of chemotherapy, and was surveillance until most recently he presented with increased rectal pain, and restaging scans this last June showed concern for local progression and increased size of his multiple lung nodules. Patient has started his Irnotecan and Erbitux, he got relief from his rectal pain and discomfort within a few days after treatment received 08/15. He has not needed any for the oxycodone, he has continue with the gabapentin at 100 mg, did not see to increase it given he was comfortable. Patient though does describe "discomfort", he is unable to tolerate standing for greater than 5 minutes, this is because he gets increased pressure and lower extremity weakness. He does get relief with laying down, and remains fairly sedentary as a result of this. He was here however very active day yesterday, as he was feeling somewhat better. We are meeting today prior to his chemotherapy, as he was somewhat sleepy with his premeds last time to be able to finish our conversation regarding advanced care planning. Patient denies any nausea or vomiting post chemo, his has had some fatigue. He continues with facial rash has exacerbated some on the top of his scalp, because of his difficulty standing he has not been able to shower on a regular basis. Social History - Living Situation Living arrangement: At home Living Situation: With family (s/o Chanel. Patient and Chanel have been together for 20 years, she has been helping him oversee his care, he does have 2 children but are not involved in his treatment. It has been difficult over this last year, there is some tension between Chanel and Chuckie, and Chanel is not planning to stay with him at some point looking to return to [place]. This timing has not been decided nor in the near future.) Medications/Allergies - Medications Home Medications: Ambulatory Orders Medication Instructions Recorded Confirmed Cholecalciferol (Vitamin D3) 2,000 unit PO DAILY 04/26/17 08/29/19 [Vitamin D3] Loperamide [Imodium] 2 mg PO Q4HR PRN MDD 16 mg 04/26/17 08/29/19 Cyanocobalamin (Vitamin B-12) 5,000 mcg PO DAILY 03/10/18 08/29/19 [Vitamin B-12] Lisinopril [Zestril] 5 mg PO DAILY 03/10/18 08/29/19 Ondansetron [Ondansetron Odt] 4 mg PO Q6HR PRN 03/10/18 08/29/19 Prochlorperazine [Compazine] 5 - 10 mg PO Q6H PRN 03/10/18 08/29/19 hydroCHLOROthiazide 25 mg PO DAILY 03/10/18 08/29/19 [Hydrochlorothiazide] Calcium Carbonate [Tums (Calcium 500 mg PO Q4-6H PRN #20 tablet 03/12/18 08/29/19 Carbonate 500mg)] Lidocaine/Prilocain 2.5% Cream 30 gm TOP UD PRN MDD portacath 06/15/18 08/29/19 [Emla 2.5% Cream] numbing Gabapentin 200 mg PO ACHS MDD titrating 08/14/19 08/29/19 Polyethylene Glycol 3350 [Miralax] 17 gm PO DAILY 08/14/19 08/29/19 Senna [Senokot] 8.6 mg PO DAILY 08/14/19 08/29/19 oxyCODONE [Roxicodone] 5 - 10 mg PO Q4HR PRN MDD 6 tabs 08/14/19 08/29/19 Hydrocortisone 1% Oint 1 applic TOP BID 08/16/19 08/29/19 [Hydrocortisone] Minocycline HCl 100 mg PO DAILY 08/16/19 08/29/19 Omeprazole 20 mg PO DAILY 08/16/19 08/29/19 - Allergies Allergies/Adverse Reactions: Allergies Allergy/AdvReac Type Severity Reaction Status Date / Time No Known Drug Allergies Allergy Verified 08/29/19 10:06 Review of Systems - Constitutional Constitutional: reports: Fatigue. denies: Fever, Chills - Ears, Nose & Throat Ears, Nose & Throat: reports: Hearing loss, Dry mouth - Cardiovascular Cardiovascular: reports: Lightheadedness, Decr. exercise tolerance - Respiratory Respiratory: reports: Cough, SOB with exertion. denies: Sputum production - Gastrointestinal Gastrointestinal: reports: Constipation (managing with miralax), Reflux/heartburn (controlled), Early satiety, Other (poor fluid intake). denies: Nausea, Vomiting - Genitourinary Genitourinary: reports: Frequency - Musculoskeletal Musculoskeletal: reports: Back pain, Stiffness, Muscle weakness - Integumentary Integumentary: reports: Rash, Dryness, Hair changes (rash into scalp) - Neurological Neurological: reports: General weakness, Memory problems - Psychiatric Psychiatric: denies: Depression, Anxiety - Hematologic/Lymphatic Hematologic/Lymphatic: reports: Anemia. denies: Recurrent infections - All Other Systems All Other Systems: reports: Reviewed and negative Physical Exam - Vital Signs Pulse Rate: 93 Respiratory Rate: 18 Blood Pressure: 125/59 - Physical Exam General Appearance: positive: No acute distress, Alert, Lethargic. negative: Anxious Eyes Bilateral: positive: Normal inspection ENT: positive: Other (poor dentition). negative: Pharyngeal erythema (1) Neck: positive: Trachea midline Cardiovascular: positive: Regular rate & rhythm Respiratory: positive: No respiratory distress, Diminished in bases Abdomen: positive: Soft Skin: positive: Pallor, Rash (into scalp area more exacerbated) Extremities: positive: No pedal edema Neurologic/Psychiatric: positive: Oriented x3, Mood/affect nml, Flat affect Palliative Care - POLST Patient has POLST: Yes POLST Status: DNR, Selective Treatment (completed at visit) Pain: Pain improved, Location (rectal pain/lower back "discomfort"; rates 3/10) Tiredness/Fatigue: Mild (1-3) Drowsiness/Sedation: Mild (1-3) Nausea: None Depression: None Anxiety: None Dyspnea: None Anorexia: None Sleep: Sleeps well Constipation: Yes, Managed Feelings of wellbeing/Perceived Quality of Life: Good, Acceptable, Improved Performance Status: Patient fairly sedentary, activity intolerance related to fatigue and difficulty standing for long periods of time. Is able to manage his own ADLs, though finds showering difficult as it involves prolonged standing. Patient has not had any falls. - Palliative Care Discussion: Discussion included at length patient and Chanel's difficult relationship, in the context of their past journey and journey over this last year with his illness. Discussion centered on KWASIE, Chanel reticent to be decision-maker, It was able to share his concerns regarding having his son be primary D POA, in the context of this they came to some understanding and Chanel has agreed to provide that support as a D POA. Will complete that paperwork with her son as follow-up. Counseling provided regarding advanced directives, patient's wishes, patient does understand the seriousness of his illness, and is hoping for the best. His quality of life is continued to be somewhat limited with his activity intolerance, more sedentary life, and fatigue. We did complete the POLST with DNAR and SELECTIVE TREATMENT with the goals defined is focusing on quality of life at this point he would accept hospitalization and treating of reversible conditions including transfer the hospital but DN I. He would like a end of life to have a comfortable respectful . They have had experience with a friend recently with hospice at a at home, he is not clear that he would be able to ask his family or support system to support him in this. He is quite pleased with his response as far as his pain, and is hoping for continued relief though does understand treatment side effects can be cumulative. Results - Lab Results Lab results reviewed: Yes Impression and Recommendations - Palliative Care Impression: This is 74-year-old gentleman who presents with progressive metastatic rectal cancer with lung and liver mets. He has had improvement in his rectal pain, but continues with increased discomfort that limits his activity and ability to stand for extended periods of time. He does continue with persistent fatigue. He completed his first round of chemotherapy with only some mild increase in his rash. Palliative care to continue provide support for pain and symptom management and advanced care planning. Recommendations/Counseling Done: 1. Pain of neoplastic origin. Patient has had improvement in his pain down to a 3 out of 10, is no longer taking any oxycodone but continues with the gabapentin at bedtime. He still has continued persistent discomfort, this does limit his ability for prolonged standing and getting packs his activity level. Counseling provided to continue to encourage use of medication for pain relief, patient not wanting to add opioid at this point in time, but does know it is available. Patient will continue on gabapentin 100 bedtime, though was encouraged to increase to 200 given his underlying baseline pain and neuropathies. 2. Constipation. Patient is using MiraLAX on a regular basis, does have the senna if needed he did experience some constipation after his last chemotherapy. 3. Metastatic rectal cancer with lung and liver mets. Patient has had some improvement already in his pain after 1 treatment, is quite pleased and feeling positive. He does have exacerbated rash on his scalp, did recommend gentle washing to remove the skin and application of rash ointment. Continues on the minocycline. 4. Generalized weakness. Patient having difficulty with prolonged standing, addressed concerns regarding patient's ability to shower and stand for prolonged periods of time. Counseling provided regarding use of safety measures of tub transfer bench, shower bench and hand-held shower. Patient aware this is an option, his S0 is hoping he will consider following through as it is a barrier for him for ADL management. 5. Advanced care planning. Met with patient and S0 prior to premeds as patient was slightly lethargic and difficult concentrating last time. Lengthy discussion regarding concerns around D POA, advanced care planning, decision was made to designate Chanel Munroe [phone] his primary D POA, and form was given to complete. POLST was completed with DNA R and selective treatment with the goals to focus on quality of life and treat reversible conditions at this point in time. We will see patient again in 4 weeks unless otherwise contacted for symptom management needs. Time Spent: 60 minutes was given 50% of this done in counseling regarding advanced care planning, symptom management, and anticipatory guidance
== END 2019-08-29 09:23 | disposition home or self-care (01) ==
LOC: PC 09:22
PROVIDERS: ATTEND Nurse Practitioner Adult Health
DX: Z51.5 Encounter for palliative care (principal); C20 Malignant neoplasm of rectum; C78.00 Secondary malignant neoplasm of unspecified lung; C78.7 Secondary malignant neoplasm of liver and intrahepatic bile duct; R53.83 Other fatigue; H91.90 Unspecified hearing loss, unspecified ear; K59.00 Constipation, unspecified; Z66 Do not resuscitate; Z90.49 Acquired absence of other specified parts of digestive tract
CPT/HCPCS: 99215

== ENCOUNTER 2019-10-24 10:55 | Outpatient (CLI) | payer MEDICARE, OTHER ==
--- NOTE | 2019-10-24 15:34 | CONSULTATION NOTE ---
Palliative Care Follow Up - Referral Referring Provider: Dr. 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 He was originally diagnosed and received concurrent chemoradiation to the rectum with Xeloda 01/2017. His original surgery status was status post hemic like to be at lower anterior resection of the rectum in 05/2015. He has been on multiple lines of chemotherapy, and was on surveillance until most recently presented with increased rectal pain, and his restaging scans this last June showed local progression, in his liver and increased size of his multiple lung nodules. Patient has done fairly well, until this last round, was starting to have some fatigue, increased breathlessness, he has been pleased he is gotten relief from his rectal pain. He is currently on Irinotecan and Erbitux. He is receiving treatment today, they had held it on 10/10. Patient's counts have recovered some, though he does remain quite weak. His biggest concern and is his inability to tolerate standing more than a few minutes secondary to pain and severe weakness in his lower extremities. Not needed oxycodone, further persistent rectal pain, and his pain fluctuates only exacerbated with standing currently. He has been started on gabapentin, has been trialing on and off has not noticed much difference. We did review his current dosing is quite low, and given the severity of his symptoms and impact on functional status, would recommend trial of increasing dosing to see if improved. In review of scans, patient had a nuclear bone scan in 06/10 that did show a metastatic lesion to the left sacrum, his most recent CT pelvic scan 09/19 did not reveal any aggressive osseous lesions. Though he does describe somewhat of a come pressed nerve pattern in the context of his symptomology. He has not had any incontinence, or retention, but it has led to a fairly sedentary lifestyle of which he is not used to. He is titrating his medications, to be able to have a soft regular bowel movement, he only has diarrhea the day of treatment.Denies any bleeding, rectal irritation, or hemorrhoids. In review of patient's medications, particularly in the context of his decreased blood pressure 99/70 and tachycardia 106, will discontinue hydrochlorothiazide for now. He continues on his lisinopril at 5 mg, has only been taking this intermittently though. Does present with alopecia since last time I have seen him, he denies any nausea or vomiting post chemo, his most persistent symptom has been fatigue and his shortness of breath. His facial rash has improved, he denies any symptoms of dysphagia, his appetite is moderate, and does have poor fluid intake though is making an effort. Social History - Living Situation Living arrangement: At home Living Situation: With spouse/s.o. Support System: Patient lives with his partner Chanel, they have been together 20 years. He does have 2 children but are not involved in his treatment. He reports are doing okay at this point in time, that her mood does fluctuate. Chanel remains engaged, continuing to help advocate and work with patient with his medications and oversight of his treatment plan. Medications/Allergies - Medications Home Medications: Ambulatory Orders Medication Instructions Recorded Confirmed Cholecalciferol (Vitamin D3) 2,000 unit PO DAILY 04/26/17 10/24/19 [Vitamin D3] Loperamide [Imodium] 2 mg PO Q4HR PRN MDD 16 mg 04/26/17 10/24/19 Cyanocobalamin (Vitamin B-12) 5,000 mcg PO DAILY 03/10/18 10/24/19 [Vitamin B-12] Ondansetron [Ondansetron Odt] 4 mg PO Q6HR PRN 03/10/18 10/24/19 Prochlorperazine [Compazine] 5 - 10 mg PO Q6H PRN 03/10/18 10/24/19 hydroCHLOROthiazide 25 mg PO DAILY 03/10/18 10/24/19 [Hydrochlorothiazide] lisinopriL [Zestril] 5 mg PO DAILY 03/10/18 10/24/19 Calcium Carbonate [Tums (Calcium 500 mg PO Q4-6H PRN #20 tablet 03/12/18 10/24/19 Carbonate 500mg)] Lidocaine/Prilocain 2.5% Cream 30 gm TOP UD PRN MDD portacath 06/15/18 10/24/19 [Emla 2.5% Cream] numbing Gabapentin 200 mg PO ACHS MDD titrating 08/14/19 10/24/19 Polyethylene Glycol 3350 [Miralax] 17 gm PO DAILY 08/14/19 10/24/19 Senna [Senokot] 8.6 mg PO DAILY 08/14/19 10/24/19 oxyCODONE [Roxicodone] 5 - 10 mg PO Q4HR PRN MDD 6 tabs 08/14/19 10/24/19 Hydrocortisone 1% Oint 1 applic TOP BID 08/16/19 10/24/19 [Hydrocortisone] Minocycline HCl 100 mg PO DAILY 08/16/19 10/24/19 Omeprazole 20 mg PO DAILY 08/16/19 10/24/19 - Allergies Allergies/Adverse Reactions: Allergies Allergy/AdvReac Type Severity Reaction Status Date / Time No Known Drug Allergies Allergy Verified 08/29/19 10:06 Review of Systems - Constitutional Constitutional: reports: Fatigue (improved over last two weeks), Poor appetite, Weight loss (148.5 about 5 pounds over last two months). denies: Fever, Chills - Ears, Nose & Throat Ears, Nose & Throat: reports: Dry mouth - Cardiovascular Cardiovascular: reports: Decr. exercise tolerance (mostly limited by LE weakness and pain) - Respiratory Respiratory: reports: SOB at rest, SOB with exertion - Gastrointestinal Gastrointestinal: reports: Diarrhea (one day after chemo only), Early satiety. denies: Constipation, Rectal bleeding, Nausea, Reflux/heartburn - Musculoskeletal Musculoskeletal: reports: Back pain, Stiffness, Limited range of motion, Muscle weakness - Integumentary Integumentary: reports: Rash (improved), Dryness, Hair changes (alopecia) - Neurological Neurological: reports: General weakness, Memory problems - Psychiatric Psychiatric: reports: Depression, Anxiety - Hematologic/Lymphatic Hematologic/Lymphatic: reports: Anemia. denies: Recurrent infections - All Other Systems All Other Systems: reports: Reviewed and negative Physical Exam - Vital Signs Temperature: 96.9 C Pulse Rate: 106 Respiratory Rate: 18 Blood Pressure: 99/70 - Physical Exam General Appearance: positive: Alert Eyes Bilateral: positive: Normal inspection ENT: positive: Other (poor dentition). negative: Pharyngeal erythema, Oral lesions Neck: positive: No JVD, Trachea midline Cardiovascular: positive: Tachycardia Respiratory: positive: No respiratory distress, Diminished in bases, Rales (crackles LLL/fine;) Abdomen: positive: Non-tender, Soft, Nml bowel sounds Skin: positive: Pallor, Dryness (scalp and forehead; rash improved) Extremities: positive: No pedal edema Neurologic/Psychiatric: positive: Oriented x3, Mood/affect nml, Weakness, Flat affect Palliative Care - POLST Patient has POLST: Yes POLST Status: DNR, Selective Treatment Pain: Pain improved (rectal pressure resolved;), Severity (neuropathy and pain with standing worsening; able to tolerate) Tiredness/Fatigue: Moderate (4-6) Drowsiness/Sedation: Moderate (4-6) Nausea: None Anorexia: Mild (1-3) Dyspnea: Moderate (4-6) Depression: Mild (1-3) Anxiety: None Feelings of wellbeing/Perceived Quality of Life: Fair, Acceptable, Improved Sleep: Sleeps well Constipation: Managed Performance Status: His functional status continues to be impacted by his fatigue, his breathlessness, and his pain and numbness with standing. He is only able to tolerate being up for couple minutes at a time, this does impact his ADLs, and ability to participate in household tasks and self-care. - Palliative Care Discussion: Patient continues with a fairly flat affect, reports he is doing okay has no fears or concerns. Reports things are going better now that he has had a break. He does understand the seriousness of his illness, he reports he mike by just taking things as they come. Chanel expressed concerns over patient's decline previous to last treatment, wanting to make sure patient's self evaluation and worries are listened to and addressed. Patient does have POLST in place with DNA R and selective treatments and Chanel is his DPOA. Results - Lab Results Lab results reviewed: Yes Impression and Recommendations - Palliative Care Impression: This is a 74-year-old gentleman who presents with progressive metastatic rectal cancer with lung, bone, and liver mets. He has had improvement in his pain rectal pain, but continues with increased discomfort with standing and neuropathies. He continues with persistent fatigue, and is developing some shortness of breath. Palliative care to continue provide support for pain and symptom management and anticipatory guidance. Recommendations/Counseling Done: 1. Pain of neoplastic origin. Patient has had improvement in his rectal discomfort, his pain in his lower back/sacral area persists and radiates down into his legs bilaterally. Impacts his functional capabilities of being able to ambulate for short distances, or tolerate prolonged standing. Counseling provided to continue encourage use of gabapentin for pain relief, patient does not want to add opioid but does have it available. Discussion regarding weighing benefits and burdens of escalating gabapentin to see if improves both discomfort and functional status, titration written out for patient. To re- initiate (has been taking sporadically) gabapenton 200 mg at bedtime x3 days; gabapentin 100 mg a.m. and 200 mg at bedtime for 3 days; gabapentin 100 mg a.m., late p.m. and 200 mg at bedtime for 3 days; gabapentin 200 mg a.m. 100 mg late p.m. and 200 mg at bedtime for 3 days; gabapentin 200 mg 3 times daily. They just had it renewed, they will call if need new Rx. 2. Hypotension. Patient with decreased intake, challenged to push fluids. We will go ahead and discontinue hydrochlorothiazide and continue to evaluate at this point in time. 3. Metastatic rectal cancer with lung, sacral, and liver mets. Patient have restaging scans in October, is experiencing some treatment fatigue but is improved today. 4. Dyspnea. Patient does rate his dyspnea 5 out of 10, denies cough, just increased shortness of breath with any kind of activity. Patient does feel this is improved somewhat, his anemia is improved from 2 weeks ago. Patient does have some fine crackles in his left lower lobe. Patient denies any risk for aspiration, reports he is swallowing without difficulty. We will continue to monitor. 5. Advanced care planning. Patient does have POLST with DNA R and selective treatment, with goals to focus on quality of life. They have a decided to designate Chanel Rocadami [phone] is his primary D POA, I do need to retrieve form as is not in records. Time Spent: 45 minutes with greater than 50% of this done in counseling regarding management of pain and discomfort, psychosocial support and anticipatory guidance. Plan to see patient in 2 weeks to titrate medications appropriately, they will contact me if questions before then
== END 2019-10-24 10:56 | disposition home or self-care (01) ==
LOC: PC 10:55
PROVIDERS: ATTEND Nurse Practitioner Adult Health
DX: Z51.5 Encounter for palliative care (principal); G89.3 Neoplasm related pain (acute) (chronic); I95.9 Hypotension, unspecified; C79.51 Secondary malignant neoplasm of bone; C20 Malignant neoplasm of rectum; C78.00 Secondary malignant neoplasm of unspecified lung; C78.7 Secondary malignant neoplasm of liver and intrahepatic bile duct; R06.02 Shortness of breath; R53.1 Weakness; G62.9 Polyneuropathy, unspecified; Z79.899 Other long term (current) drug therapy; Z66 Do not resuscitate
CPT/HCPCS: 99215

== ENCOUNTER 2019-11-21 09:05 | Outpatient (CLI) | payer MEDICARE, OTHER ==
--- NOTE | 2019-11-21 12:44 | CONSULTATION NOTE ---
Palliative Care Follow Up - Referral Referring Provider: Dr. Destiney Moreno Time of Visit: 9799-5036 Ref[place] [facility] [place] Reason: Peripheral neuropathy/Fatigue/Met Rectal Ca - Information Sources Records reviewed: Previous records reviewed History/Review of Systems obtained from: Patient, Family (s/o Chanel) Exam limitations: Clinical condition (patient slightly lethargic from pre-med) - History of Present Illness Update Brief HPI Update: This is a 74-year-old gentleman with metastatic rectal cancer with liver and lung mets. He was originally diagnosed and received concurrent chemoradiation to the rectum with Xeloda 01/2017. His original surgery was a left hemicolectomy with low anterior resection in May 2015. He has received multiple rounds of chemotherapy, he is currently on Bia OT can and Erbitux. He has had some complications regarding this with severe fatigue, and shortness of breath. He does feel better with a break from his treatments, though his CEA is elevated from baseline. He will be receiving a CT scan for restaging, and have his treatments stretched out to 3 weeks per his understanding. Patient continues with worsening symptom burden, reports intermittent constipation, reports rectal pain improved. He has though had intermittent vomiting, particularly in the a.m. with moving and increased effort, if he paces himself this does not occur. He reports declining functional status, severe fatigue, and spends most of his time on the couch. He reports his shortness of breath is better, but still quite limiting. His most severe symptom is actually his lower extremity neuropathy which manifest as both pain and weakness, numbness, and difficulty with ambulation. We have been titrating up his gabapentin, he is currently supposed to be at 300 mg 3 times daily, but has been somewhat slow and adding the medications. This is due to his S/O Chanel was out of town for 1 week, as well as patient has difficulty at times with medication adherence. He is feeling better with his blood pressure up with the discontinuation of the HCTZ, but is still receiving intermittent fluids with his treatments. Patient does have alopecia, intermittent nausea just the day of his treatment, other than with effort. His facial rash has extended up into his scalp area, he has not been using his hydrocortisone cream. Social History - Living Situation Living arrangement: At home Living Situation: With spouse/s.o. Support System: Patient lives at home with his significant other Chanel, she has been out of town for over a week, they have been together 20 years. He does have 2 children who are not currently involved in his care or treatment. He reports he is doing okay at this time, though does see himself is declining. Medications/Allergies - Medications Home Medications: Ambulatory Orders Medication Instructions Recorded Confirmed Cholecalciferol (Vitamin D3) 2,000 unit PO DAILY 04/26/17 11/21/19 [Vitamin D3] Loperamide [Imodium] 2 mg PO Q4HR PRN MDD 16 mg 04/26/17 11/21/19 Cyanocobalamin (Vitamin B-12) 5,000 mcg PO DAILY 03/10/18 11/21/19 [Vitamin B-12] Ondansetron [Ondansetron Odt] 4 mg PO Q6HR PRN 03/10/18 11/21/19 Prochlorperazine [Compazine] 5 - 10 mg PO Q6H PRN 03/10/18 11/21/19 lisinopriL [Zestril] 5 mg PO DAILY 03/10/18 11/21/19 Calcium Carbonate [Tums (Calcium 500 mg PO Q4-6H PRN #20 tablet 03/12/18 11/21/19 Carbonate 500mg)] Lidocaine/Prilocain 2.5% Cream 30 gm TOP UD PRN MDD portacath 06/15/18 11/21/19 [Emla 2.5% Cream] numbing Gabapentin 300 mg PO TID MDD titrating up 08/14/19 11/21/19 Senna [Senokot] 8.6 mg PO DAILY PRN 08/14/19 11/21/19 oxyCODONE [Roxicodone] 5 - 10 mg PO Q4HR PRN MDD 6 tabs 08/14/19 11/21/19 polyethylene glycoL 3350 [Miralax] 17 gm PO DAILY 08/14/19 11/21/19 Hydrocortisone 1% Oint 1 applic TOP BID 08/16/19 11/21/19 [Hydrocortisone] Minocycline HCl 100 mg PO DAILY 08/16/19 11/21/19 Omeprazole 20 mg PO DAILY 08/16/19 11/21/19 - Allergies Allergies/Adverse Reactions: Allergies Allergy/AdvReac Type Severity Reaction Status Date / Time No Known Drug Allergies Allergy Verified 08/29/19 10:06 Review of Systems - Constitutional Constitutional: reports: Fatigue (worsening), Weight stable (153) - Ears, Nose & Throat Ears, Nose & Throat: reports: Dental decay, Dry mouth. denies: Mouth lesions - Cardiovascular Cardiovascular: reports: Exertional dyspnea, Decr. exercise tolerance. denies: Edema - Respiratory Respiratory: reports: SOB with exertion. denies: SOB at rest - Gastrointestinal Gastrointestinal: reports: Constipation (has not been consistent with bowel program; hard stool), Vomiting (in am with exertion; no nausea prior; not every day), Good appetite - Genitourinary Genitourinary: reports: Frequency, Nocturia - Musculoskeletal Musculoskeletal: reports: Back pain, Stiffness, Muscle weakness - Integumentary Integumentary: reports: Rash (forehead scalp), Dryness - Neurological Neurological: reports: General weakness, Abnormal gait - Psychiatric Psychiatric: denies: Depression, Anxiety - Hematologic/Lymphatic Hematologic/Lymphatic: reports: Anemia - All Other Systems All Other Systems: reports: Reviewed and negative, Other (patient tends to minimize symptoms) Physical Exam - Vital Signs Temperature: 36.8 C Pulse Rate: 111 Respiratory Rate: 18 Blood Pressure: 124/65 - Physical Exam General Appearance: positive: Alert (reports feeling "buzzed" with premed) Eyes Bilateral: positive: Normal inspection ENT: positive: Other (poor dentition). negative: Oral lesions Neck: positive: No JVD, Trachea midline Cardiovascular: positive: Tachycardia Respiratory: positive: Diminished in bases. negative: Wheezes, Rales, Rhonchi Abdomen: positive: Soft Skin: positive: Pallor, Dryness, Rash (scaling and redness across forehead and scalp) Extremities: positive: No pedal edema Neurologic/Psychiatric: positive: Oriented x3, Mood/affect nml, Flat affect Palliative Care - POLST Patient has POLST: Yes POLST Status: DNR, Selective Treatment Pain: Pain improved, Location (rectal) Tiredness/Fatigue: Severe (7-10) Drowsiness/Sedation: Moderate (4-6), Comment (spends most of time on couch) Nausea: With vomiting Anorexia: None Dyspnea: Mild (1-3) (improved; though limited activity) Depression: None Anxiety: None Feelings of wellbeing/Perceived Quality of Life: Good, Acceptable, Worsening Sleep: Variable sleep pattern (up at night to urinate) Constipation: Yes, Intermittent constipation Performance Status: Patient's functional status continues decline, he does spend most of his time on the couch. He only ambulates for short distances with intermittent bathing. We did discuss possibly using a wheelchair, to decrease his isolation and get out of the house more. Patient is quite content being a homebody, he does get short of breath and in the a.m. has vomiting with physical exertion. I would put him at a ECOG 3 or PPS of 60% - Palliative Care Discussion: Patient remains quite pragmatic in his approach to his illness, most of his answers are "it is what it is". He does understand the seriousness of his illness, continues to weigh the benefits and burdens of treatment, but does appear to be continuing with functional decline and increased symptom burden. Patient does have a POLST in place his DNA R and selective treatments, he did choose Chanel to be his D POA. Results - Lab Results Lab results reviewed: Yes Impression and Recommendations - Palliative Care Impression: This is a 74-year-old gentleman who presents with progressive metastatic rectal CA with lung, bone, and liver mets. He continues to have difficulty with standing, neuropathies, and activity intolerance. He continues persistent fatigue, his shortness of breath continues but is not worsening. Palliative care to continue provide support for pain and symptom management and anticipatory guidance. Recommendations/Counseling Done: 1.Pain of neoplastic origin. This is multi-factorial with several pain generators. Patient's rectal discomfort, has improved. Though he does have persistent discomfort particularly in the rectal sacral area. He does have pain that persists and radiates down his legs bilaterally particularly with standing, impacts his functional capabilities of being able to ambulate or tolerate prolonged standing. Patient was directed on a gabapentin titration upwards, has increased but not to maximum titration requested, counseling provided and reiterated and redated titration with the goal for 300 mg 3 times daily. Will evaluate if effective or some impact, patient does have oxycodone, but finds it too altering to use unless he is in significant pain. 2. Hypertension. Patient reports his intake is improved, continues to be challenged to push fluids. He is receiving a liter with his chemo today. He has discontinued his hydrochlorothiazide with some improvement in his labs and blood pressure. 3. Metastatic rectal cancer with lung, sacral, and liver mets. Patient is scheduled to have restaging scans, he he has missed her treatment with snow, but did feel better with increased energy has had some significant treatment fatigue. Met with oncology today, is looking at spreading out treatments to every 3 weeks. 4. Dyspnea. Reports this is somewhat improved, rates it at 3 out of 10 down from 5 out of 10. Denies cough, just increased baseline shortness of breath with any activity. Patient with diminished breath sounds in his bases, has not been having trouble with swallowing denies risk for aspiration. Patient does have count today to 13.5 with neutrophils 11.0, has been counseled in s/s of infection to contact PCP/PC or clinic. 5. Rash. This is secondary to his Erbitux. Is taking his minocycline, instructed to restart hydrocortisone topical twice daily. 6. Advanced care planning. Patient does have POLST with DNA R and selective treatment with goals to focus on quality of life. He continues to have a fairly pragmatic approach to his illness and decline. His S. O. Chanel [facility] [phone] is his primary D POA. Time Spent: 35 minutes with greater than 50% of this done in counseling regarding pain and symptom management, anticipatory guidance, and psychosocial support.
== END 2019-11-21 09:06 | disposition home or self-care (01) ==
LOC: PC 09:05
PROVIDERS: ATTEND Nurse Practitioner Adult Health
DX: Z51.5 Encounter for palliative care (principal); G62.9 Polyneuropathy, unspecified; R11.10 Vomiting, unspecified; G89.3 Neoplasm related pain (acute) (chronic); R06.02 Shortness of breath; R53.83 Other fatigue; L27.0 Generalized skin eruption due to drugs and medicaments taken internally; T45.1X5A Adverse effect of antineoplastic and immunosuppressive drugs, initial encounter; K59.00 Constipation, unspecified; R53.1 Weakness; I10 Essential (primary) hypertension; C79.51 Secondary malignant neoplasm of bone; C78.00 Secondary malignant neoplasm of unspecified lung; C78.7 Secondary malignant neoplasm of liver and intrahepatic bile duct; C20 Malignant neoplasm of rectum; Z79.899 Other long term (current) drug therapy; Z66 Do not resuscitate
CPT/HCPCS: 99214

== ENCOUNTER 2019-12-14 08:35 | Outpatient (CLI) | payer MEDICARE, OTHER ==
--- NOTE | 2019-12-14 09:32 | CONSULTATION NOTE ---
Palliative Care Follow Up - Referral Referring Provider: Dr. Destiney Moreno Time of Visit: [id number]:10:30-10:45 [place] setting[place] [facility] [place]erral Reason: Fatigue/Dyspnea/Met Rectal Cancer - Information Sources Records reviewed: Previous records reviewed History/Review of Systems obtained from: Patient, Family (s/o Chanel) Exam limitations: No limitations - History of Present Illness Update Brief HPI Update: This is a 74-year-old gentleman with metastatic rectal cancer with liver and lung mets. He was originally diagnosed and received concurrent chemotherapy to the rectum with Xeloda 01/2017, his original surgery was a left hemicolectomy with low anterior resection in May 2015. He has had multiple rounds of octavio motherapy, unfortunately his disease is continue to progress, with increase in his CEA, and disease progression in both his lungs and liver CT scan on zero 11/28/2019. The plan is to hold irinotecan Erbitux, and proceed with FOLFOX 6. Patient has been on a break, but has not recovered well. Contacted by significant other Chanel yesterday, patient having severe increased fatigue, increased shortness of breath, difficulty tolerating her activity. Very sedentary, and also escalating pain. Pain is centralized rectal area, had diminished but now worsening. He is also developed right upper quadrant pain, which fluctuates in severity. Patient has been trialed on gabapentin, with titration up to 300 mg 3 times daily without any effect. We will go ahead and titrate back down, instructions given for taper over next week. Patient has initiated oxycodone 5 mg, is tolerating better without oversedation, and getting some relief. He had denied fever or chills, but patient was wheezy on phone, and is having increased shortness of breath. Patient had episode of vomiting this am, reports from exertion. Denies weight loss, but poor fluid intake. Patient does have diminished breath sounds, no wheezes, but is breathless with any kind of activity. Patient denies cough. Had originally thought patient may need transfusion, as last hemoglobin was 7.8 given constellation of symptoms so labs were scheduled for today. Today is HGB 7.9. But his white count has come back to 17,000, also neutrophil count at 13.4. Both patient and significant other disappointed by progressive disease, patient continues with his pragmatic approach "it is what it is". Patient is scheduled for chemotherapy next week, awaiting stat chest x-ray results. Social History - Living Situation Living arrangement: At home Living Situation: With spouse/s.o. Support System: Patient tends and reported symptoms, which is quite frustrating to his as well. He does live at home, with her support she does advocate and oversee and assist with medications. They have been together over 20 years. He does have 2 children, her not currently involved in his treatment. Medications/Allergies - Medications Home Medications: Ambulatory Orders Medication Instructions Recorded Confirmed Cholecalciferol (Vitamin D3) 2,000 unit PO DAILY 04/26/17 12/14/19 [Vitamin D3] Loperamide [Imodium] 2 mg PO Q4HR PRN MDD 16 mg 04/26/17 12/14/19 Cyanocobalamin (Vitamin B-12) 5,000 mcg PO DAILY 03/10/18 12/14/19 [Vitamin B-12] Ondansetron [Ondansetron Odt] 4 mg PO Q6HR PRN 03/10/18 12/14/19 Prochlorperazine [Compazine] 5 - 10 mg PO Q6H PRN 03/10/18 12/14/19 lisinopriL [Zestril] 5 mg PO DAILY 03/10/18 12/14/19 Calcium Carbonate [Tums (Calcium 500 mg PO Q4-6H PRN #20 tablet 03/12/18 12/14/19 Carbonate 500mg)] Lidocaine/Prilocain 2.5% Cream 30 gm TOP UD PRN MDD portacath 06/15/18 12/14/19 [Emla 2.5% Cream] numbing Gabapentin 300 mg PO BID MDD titrating down 08/14/19 12/14/19 Senna [Senokot] 8.6 mg PO DAILY PRN 08/14/19 12/14/19 oxyCODONE [Roxicodone] 5 - 10 mg PO Q4HR PRN MDD 6 tabs 08/14/19 12/14/19 polyethylene glycoL 3350 [Miralax] 17 gm PO DAILY PRN 08/14/19 12/14/19 Hydrocortisone 1% Oint 1 applic TOP BID 08/16/19 12/14/19 [Hydrocortisone] Minocycline HCl 100 mg PO DAILY 08/16/19 12/14/19 Omeprazole 20 mg PO DAILY 08/16/19 12/14/19 - Allergies Allergies/Adverse Reactions: Allergies Allergy/AdvReac Type Severity Reaction Status Date / Time No Known Drug Allergies Allergy Verified 08/29/19 10:06 Review of Systems - Constitutional Constitutional: reports: Fatigue (worsening; poor activity tolerance; mostly on couch), Malaise, Weakness, Poor appetite (over two week). denies: Fever, Night sweats - Ears, Nose & Throat Ears, Nose & Throat: reports: Hearing loss (mild), Other (poor dentition) - Cardiovascular Cardiovascular: reports: Lightheadedness, Exertional dyspnea, Decr. exercise tolerance. denies: Chest pain - Respiratory Respiratory: reports: Cough (intermittent), Wheezing, SOB at rest, SOB with exertion. denies: Hemoptysis - Gastrointestinal Gastrointestinal: reports: Nausea, Vomiting, Early satiety. denies: Constipation, Reflux/heartburn - Musculoskeletal Musculoskeletal: reports: Muscle weakness - Integumentary Integumentary: reports: Dryness, Hair changes (alopecia) - Neurological Neurological: reports: General weakness, Abnormal gait - Psychiatric Psychiatric: reports: Depression. denies: Anxiety - Hematologic/Lymphatic Hematologic/Lymphatic: reports: Anemia (7.9; with dehydration) - All Other Systems All Other Systems: reports: Reviewed and negative Physical Exam - Vital Signs Temperature: 36.6 C Pulse Rate: 101 Respiratory Rate: 22 O2 Saturation: 93 (ra @ rest) Blood Pressure: 164/90 (sitting; 147/82 standing) - Physical Exam General Appearance: positive: Alert, Mild distress Eyes Bilateral: positive: Normal inspection ENT: negative: Pharyngeal erythema, Oral lesions Neck: positive: Trachea midline Cardiovascular: positive: Tachycardia Respiratory: positive: Diminished throughout Abdomen: positive: Soft, Tenderness (RUQ) Skin: positive: Pallor, Dryness Extremities: positive: No pedal edema Neurologic/Psychiatric: positive: Oriented x3, Mood/affect nml, Weakness, Flat affect Palliative Care - POLST Patient has POLST: Yes POLST Status: DNR, Selective Treatment Pain: Pain worsening, Location (see HPI/ rectum/back and RUQ) Tiredness/Fatigue: Severe (7-10) Drowsiness/Sedation: Mild (1-3) Nausea: Mild (1-3) (triggered by exertion), With vomiting Anorexia: Mild (1-3) Dyspnea: Moderate (4-6) Depression: Moderate (4-6) Anxiety: Mild (1-3) Feelings of wellbeing/Perceived Quality of Life: Fair, Worsening Constipation: Yes, Opoid induced, Comment (finds complicated to balance with hemicolectomy tends to be loose; poor control so anxious to use medication) Performance Status: Patient has been having ongoing functional decline, most acutely over the last few days. Patient unable to tolerate activity other than ambulate back and forth to the bathroom back to the couch. He does get quite breathless with any activity some lightheadedness. Exertion also because this triggers vomiting. His activity is also limited by if he has any sustained standing, he does get significant numbness and pain, this is not a new symptom. Results - Lab Results Lab results reviewed: Yes Lab and Imaging Results: Chest x-ray showed known pulmonary mass in the medial posterior right upper lobe measuring 4.0 x 4.3 x 5.6, this is not changed from the CT with most recent chest. Unfortunately does not shown any acute consolidations, and suspect a small right pleural fluid accumulation. UA was negative Impression and Recommendations - Palliative Care Impression: This is a 74-year-old gentleman with metastatic rectal cancer involving liver and lungs, with confirmed progression in liver and lung, who presents with functional decline, significant increase in dyspnea, generalized weakness, no fever or chills but labs reveal WBC of 17.0, neutrophil of 13.4, anemic, and concern for infection with acute changes. Recommendations/Counseling Done: 1. Leukocytosis with acute change in condition. Chest x-ray done to rule out pneumonia, with this followed up with oncology team for further instructions, Dr. Sunshine covering for Dr. Moreno. Patient refused ED work up, did agree to follow up UA ruled out UTI, and blood cultures done. Dr. Sunshine not recommend antibiotics without identified source, recommended follow-up CBC tomorrow morning. Patient may at that point in time though require a transfusion, as he had bumped up to 7.9, and had designated 7.8 as cut off for transfusion. Patient has been instructed to call 911 or access to ED for changes in altered mental status, fever or chills, or worsening status. 2. Pain of neoplastic origin. Patient is being titrated off gabapentin, as did not see any effect. Patient has been tolerating oxycodone, counseling provided regarding using oxycodone on a regular basis, to address pain. Does have 5 mg tabs, encouraged to take [id number], if effective can transition to long- acting opioid. 3. Constipation. Patient has not had a bowel movement 2 or 3 days, is hesitant as patient most often deals with loose stools/incontinence if not careful. Counseling provided regarding titration of MiraLAX, as well as maintenance dose of quarter capful daily. 4. Dehydration. Patient presents with dizziness, poor intake, does have orthostatic changes with sitting to standing, as well as increased pulse. Will receive 1 L, may still need either follow-up liter, or blood transfusion tomorrow based on his symptomology and labs. Patient usually responds well to fluids, is hoping for improvement. 5. Metastatic rectal carcinoma. Patient to initiate new "old" treatment, FOLFOX 6 on Wednesday. Patient currently has had functional decline, as well as increased symptom burden. Will need to monitor regarding patient's underlying status. Did receive teaching in preparation, patient does want to continue treatment at this point in time, is somewhat pragmatic to his approach. His s/o Chanel is obviously concerned.
== END 2019-12-14 08:36 | disposition home or self-care (01) ==
LOC: PC 08:35
PROVIDERS: ATTEND Nurse Practitioner Adult Health
DX: Z51.5 Encounter for palliative care (principal); G89.3 Neoplasm related pain (acute) (chronic); E86.0 Dehydration; D72.829 Elevated white blood cell count, unspecified; R53.83 Other fatigue; R06.02 Shortness of breath; K59.03 Drug induced constipation; T40.2X5A Adverse effect of other opioids, initial encounter; C78.7 Secondary malignant neoplasm of liver and intrahepatic bile duct; C78.02 Secondary malignant neoplasm of left lung; C78.01 Secondary malignant neoplasm of right lung; C20 Malignant neoplasm of rectum; Z79.899 Other long term (current) drug therapy; Z79.891 Long term (current) use of opiate analgesic; Z66 Do not resuscitate
CPT/HCPCS: 99215

== ENCOUNTER 2019-12-20 20:35 | Outpatient (CLI) | payer MEDICARE, OTHER | END 2019-12-20 23:59 | disposition critical access hospital (66) | LOC: EMS 20:35 | PROVIDERS: ATTEND Surgery | DX: M54.9 Dorsalgia, unspecified (principal); M54.2 Cervicalgia; R53.1 Weakness | CPT/HCPCS: A0425; A0429 ==

== ENCOUNTER 2019-12-20 20:53 | Inpatient (IN) | payer MEDICARE, OTHER ==
[2019-12-20] MEDS ORDERED: HYDROmorphone 1 MG/ML CARPUJECT IM STA (21:08)
[2019-12-20] MEDS ORDERED: ONDANSETRON 4 MG/2 ML VIAL IVP STA (21:08)
[2019-12-20] MEDS ORDERED: SODIUM CHLORIDE 0.9% 1,000 ML IV ONE ×2 (21:09→23:51)
[2019-12-20 21:32] LABS: BASOPHILS % (AUTO) 0.4 %; HGB - HEMOGLOBIN 10.2 g/dL (14.0-18.0); LYMPHOCYTES % (AUTO) 2.8 %; MEAN CORPUSCULAR HEMOGLOBIN 28.8 pg (27.0-31.0); MEAN CORPUSCULAR HGB CONC 30.7 g/dL (32.0-36.0); MEAN CORPUSCULAR VOLUME 93.8 fL (80.0-94.0); MONOCYTES % (AUTO) 12.1 %; NEUTROPHILS % (AUTO) 82.8 %; PLT - PLATELET COUNT 344 10^3/uL (130-450); RED BLOOD COUNT 3.54 10^6/uL (4.70-6.10); RED CELL DISTRIBUTION WIDTH 17.3 % (12.0-15.0); WHITE BLOOD COUNT 18.8 x10^3/uL (4.8-10.8)
[2019-12-20 21:34] LABS: ABNORMAL LYMPHS % (MANUAL) 0 %; BAND NEUTROPHILS % (MANUAL) 0 %; LYMPHOCYTES % (MANUAL) 0 %
[2019-12-20 21:39] LABS: INR 1.5 (0.8-1.2); PT - PROTHROMBIN TIME 17.1 secs (9.9-12.6)
[2019-12-20] MEDS ORDERED: HYDROmorphone 1 MG/ML CARPUJECT IVP STA ×2 (21:45→23:02)
[2019-12-20 21:47] LABS: ALBUMIN 2.6 g/dL (3.2-5.5); ALBUMIN/GLOBULIN RATIO 0.8 (1.0-2.2); BILIRUBIN,TOTAL 1.7 mg/dL (0.2-1.0); CALCIUM 8.2 mg/dL (8.5-10.3); CREATININE 1.5 mg/dL (0.6-1.2); TOTAL PROTEIN 5.7 g/dL (6.7-8.2)
[2019-12-20 21:54] LABS: PLATELET ESTIMATE, MANUAL NORMAL (130-450,000) (NORMAL); PLATELET MORPHOLOGY NORMAL APPEARANCE (NORMAL); RBC MORPHOLOGY (MULTIPLE) 1+ ANISOCYTOSIS (NORMAL)
[2019-12-20 21:55] LABS: DIFFERENTIAL COMMENT MANUAL DIFFERENTIAL
[2019-12-20] MEDS ORDERED: IOVERSOL 320 100 ML VIAL IVP ONE ×2 (22:12→22:45)
--- NOTE | 2019-12-20 23:39 | CT Report ---
Reason: RECTAL PAIN, HX OF RECTCAL ADENOCARCINOMA Procedure Date: 12/20/2019 Accession Number: [id number] / [id number] Procedure: CT - Abdomen/Pelvis W CPT Code: Final Report FULL RESULT: EXAM: CT ABDOMEN AND PELVIS WITH CONTRAST. EXAM DATE: 12/20/2019 10:46 PM. CLINICAL HISTORY: Rectal pain, history of rectal adenocarcinoma. COMPARISONS: ABDOMEN/PELVIS W/ 11/28/2019 10:04 AM. ABDOMEN/PELVIS W/ 07/20/2019 9:47 AM. TECHNIQUE: Routine helical CT imaging was performed through the abdomen and pelvis. IV contrast: 100 mL of OPTIRAY 320. Enteric contrast: No. Reconstructions: Coronal and sagittal. In accordance with CT protocol optimization, one or more of the following dose reduction techniques were utilized for this exam: automated exposure control, adjustment of mA and/or KV based on patient size, or use of iterative reconstructive technique. FINDINGS: Lung Bases: Small left-sided pleural effusion. Numerous nodules in the visualized lung bases. Heart size within normal limits. Liver: Progressive metastatic disease throughout the liver with markedly increased tumor burden throughout the left lobe and marked increase in the number and size of the right hepatic lobe metastatic lesions. Redemonstration of the cluster of lymph nodes in the florentin hepatis. Gallbladder/Bile Ducts: Unremarkable. Spleen: Gallbladder grossly unremarkable. No intrahepatic or extrahepatic biliary ductal dilatation. Pancreas: Normal. Adrenal Glands: Normal. Kidneys: No hydronephrosis or nephrolithiasis. Normal course and caliber of the ureters without evidence of ureteral stones. Peritoneal Cavity/Bowel: Normal caliber of the small bowel without evidence of obstruction. No focal bowel wall thickening or inflammation. Anastomotic suture line at the level of the rectum with no evidence of local tumor recurrence. Stable presacral soft tissue thickening likely secondary to treatment changes. Small amount of perisplenic free fluid. Appendix: The appendix is well visualized and normal. Pelvic Organs: Stable marked prostatic enlargement. Interval decreased thickening of the left urinary bladder wall. Vasculature: Extensive atherosclerotic calcifications of the abdominal aorta without aneurysmal dilatation. Bones: No significant focal osseous lesions. Bilateral L5 pars defects associated grade 1 anterolisthesis of L5 on S1. Decreased osseous mineralization subjectively. Other: None. IMPRESSION: 1. No acute findings in the abdomen or pelvis. 2. Significant progression of the extensive hepatic metastatic disease. 3. No evidence of local tumor recurrence at the site of the rectal anastomosis. 4. Redemonstration of the multiple small pulmonary nodules most consistent with pulmonary metastasis. 5. Interval development of a small left-sided pleural effusion. 6. Small amount of nonspecific perisplenic free fluid. 7. Stable marked prostatic enlargement. 8. Interval decrease thickening of the left urinary bladder wall. RADIA
--- NOTE | 2019-12-21 00:03 | ED Physician Documentation ---
History of Present Illness - Stated complaint Stated Complaint: CANCER PAIN/WEAKNESS - Chief complaint Chief Complaint: Back Pain - History obtained from History obtained from: Patient, Family - History of Present Illness Pain level max: 10 Pain level now: 10 Radiates to: NONE Improved by: NOTHING Worsened by: NOTHING - Additonal information Additional information: 74 YEAR OLD MALE WITH HX OF METASTATIC RECTAL ADENOCARCINOMA, HTN, COPD, WHO PRESENTS TO THE EMERGENCY DEPARTMENT WITH 2 DAYS OF WORSENING LOW BACK, RECTAL PAIN. PATIENT WAS SEEN RECENTLY FOR FEVER (LAST WEDNESDAY WITH A NEGATIVE CHEST XRAY) AND WAS STARTED ON LEVAQUIN AFTER EVALUATION. PATIENT HAS NOT HAD A FEVER SINCE. HE HAS NOT BEEN ON CHEMOTHERAPY FOR OVER A MONTH AND WAS SCHEDULED TO RESTART ON CHEMOTHERAPY IN THE NEXT FEW DAYS. HE PRESENTED WITH WORSENING RECTAL, LOW BACK DISCOMFORT. PER FAMILY MEMBER, PATIENT HAS A HX OF THE SAME IN THE PAST AND SYMPTOMS IMPROVED AFTER UNDERGOING CHEMOTHREAPY. THIS WAS 2 YEARS AGO. Review of Systems Constitutional: denies: Fever, Chills Nose: denies: Rhinorrhea / runny nose Cardiac: denies: Chest pain / pressure, Palpitations Respiratory: denies: Dyspnea, Cough GI: denies: Abdominal Pain Skin: denies: Rash Musculoskeletal: reports: Back pain, Other (BACK TO TAIL BONE AND RECTAL AREA) Neurologic: denies: Generalized weakness, Focal weakness, Numbness PD PAST MEDICAL HISTORY - Past Medical History Past Medical History: Yes Cardiovascular: Hypertension Respiratory: COPD Neuro: Peripheral neuropathy Endocrine/Autoimmune: None GI: GERD, Colon polyps, Other : Benign prostate hypertrophy HEENT: Chronic hearing loss Psych: Depression Musculoskeletal: Osteoarthritis, Chronic back pain Derm: Other - Past Surgical History Past Surgical History: Yes General: Bowel surgery - Present Medications Home Medications: Ambulatory Orders Medication Instructions Recorded Confirmed Cholecalciferol (Vitamin D3) 2,000 unit PO DAILY 04/26/17 12/21/19 [Vitamin D3] Loperamide [Imodium] 2 mg PO Q4HR PRN MDD 16 mg 04/26/17 12/21/19 Cyanocobalamin (Vitamin B-12) 5,000 mcg PO DAILY 03/10/18 12/21/19 [Vitamin B-12] Ondansetron [Ondansetron Odt] 4 mg PO Q6HR PRN 03/10/18 12/21/19 Prochlorperazine [Compazine] 5 - 10 mg PO Q6H PRN 03/10/18 12/21/19 lisinopriL [Zestril] 5 mg PO DAILY 03/10/18 12/21/19 Lidocaine/Prilocain 2.5% Cream 1 applic TOP UD PRN MDD portacath 06/15/18 12/21/19 [Emla 2.5% Cream] numbing Senna [Senokot] 8.6 mg PO DAILY PRN 08/14/19 12/21/19 polyethylene glycoL 3350 [Miralax] 17 gm PO DAILY PRN 08/14/19 12/21/19 Minocycline HCl 100 mg PO DAILY 08/16/19 12/21/19 Omeprazole 20 mg PO DAILY 08/16/19 12/21/19 Gabapentin 300 mg PO BID 12/21/19 12/21/19 hydroCHLOROthiazide 25 mg PO DAILY 12/21/19 12/21/19 [Hydrochlorothiazide] - Allergies Allergies/Adverse Reactions: Allergies Allergy/AdvReac Type Severity Reaction Status Date / Time No Known Drug Allergies Allergy Verified 12/20/19 21:42 - Social History Does the pt smoke?: No Smoking Status: Never smoker - POLST Patient has POLST: Yes POLST Status: DNR PD ED PE NORMAL - General General: Alert and oriented X 3, Other (CHRONICALLY ILL APPEARING. APPEARED IN SIGNIFICANT PAIN) - HEENT HEENT: Atraumatic - Neck Neck: Supple, no meningeal sign - Cardiac Cardiac: Other (TACHYCARDIAC) - Respiratory Respiratory: No respiratory distress - Abdomen Abdomen: Normal bowel sounds, Soft, Non tender, Non distended - Back Back: Other (MIDLINE TENDERNESS TO LOWER LUMBAR AND SACRAL AREA. NO STEP OFF OR CREPITUS) - Derm Derm: Normal color, Warm and dry - Extremities Extremities: No deformity, No tenderness to palpate, Normal ROM s pain, No edema - Neuro Neuro: Alert and oriented X 3 Eye Opening: Spontaneous Motor: Obeys Commands Verbal: Oriented GCS Score: 15 - Psych Psych: Normal mood Results - Vitals Vitals: Oxygen O2 Source Nasal cannula Oxygen Flow Rate 2 - Labs Labs: Microbiology 12/21/19 06:00 Blood Culture - Preliminary Blood NO GROWTH AFTER 2 DAYS 12/21/19 06:10 Blood Culture - Preliminary Blood NO GROWTH AFTER 2 DAYS Laboratory Tests 12/20/19 12/20/19 12/20/19 21:25 21:25 21:25 WBC 18.8 H RBC 3.54 L Hgb 10.2 L Hct 33.2 L MCV 93.8 MCH 28.8 MCHC 30.7 L RDW 17.3 H Plt Count 344 MPV 11.0 Neut # (Auto) Not Reportable Lymph # (Auto) Not Reportable [place] # (Auto) Not Reportable Eos # (Auto) Not Reportable Baso # (Auto) Not Reportable Absolute Nucleated RBC Not Reportable Total Counted 100 Band Neuts % (Manual) 0 Reactive Lymphs % (Man) Abnorm Lymph % (Manual) 0 Myelocytes % Nucleated RBC % Not Reportable Neutrophils # (Manual) 15.8 H Lymphocytes # (Manual) 0.0 L Monocytes # (Manual) 3.0 H Eosinophils # (Manual) 0.0 Basophils # (Manual) 0.0 Differential Comment MANUAL DIFFERENTIAL WBC Morphology NORMAL APPEARANCE Platelet Estimate NORMAL (130-450,000) Platelet Morphology NORMAL APPEARANCE RBC Morph Micro Appear 1+ ANISOCYTOSIS PT 17.1 H INR 1.5 H Sodium 140 Potassium 3.6 Chloride 102 Carbon Dioxide 26 Anion Gap 12.0 BUN 22 H Creatinine 1.5 H Estimated GFR (MDRD) 46 L Glucose 125 H Uric Acid Calcium 8.2 L Phosphorus Total Bilirubin 1.7 H AST 110 H ALT 47 Alkaline Phosphatase 475 H Total Protein 5.7 L Albumin 2.6 L Globulin 3.1 Albumin/Globulin Ratio 0.8 L Lipase 56 H Urine Color Urine Clarity Urine pH Ur Specific [place] Urine Protein Urine Glucose (UA) Urine Ketones Urine Occult Blood Urine Nitrite Urine Bilirubin Urine Urobilinogen Ur Leukocyte Esterase Ur Microscopic Review Urine Culture Comments 12/21/19 12/21/19 12/21/19 00:01 02:22 06:10 WBC 18.7 H RBC 3.32 L Hgb 9.6 L Hct 31.5 L MCV 94.9 H MCH 28.9 MCHC 30.5 L RDW 17.1 H Plt Count 311 MPV 10.7 Neut # (Auto) Not Reportable Lymph # (Auto) Not Reportable [place] # (Auto) Not Reportable Eos # (Auto) Not Reportable Baso # (Auto) Not Reportable Absolute Nucleated RBC Not Reportable Total Counted 100 Band Neuts % (Manual) 0 Reactive Lymphs % (Man) 1 Abnorm Lymph % (Manual) 0 Myelocytes % 2 H Nucleated RBC % Not Reportable Neutrophils # (Manual) 16.5 H Lymphocytes # (Manual) 0.6 L Monocytes # (Manual) 1.3 H Eosinophils # (Manual) 0.0 Basophils # (Manual) 0.0 Differential Comment MANUAL DIFFERENTIAL WBC Morphology Platelet Estimate Platelet Morphology RBC Morph Micro Appear 3+ ANISOCYTOSIS PT INR Sodium Potassium Chloride Carbon Dioxide Anion Gap BUN Creatinine Estimated GFR (MDRD) Glucose Uric Acid 9.3 H Calcium Phosphorus 3.7 Total Bilirubin AST ALT Alkaline Phosphatase Total Protein Albumin Globulin Albumin/Globulin Ratio Lipase Urine Color YELLOW Urine Clarity CLEAR Urine pH 5.5 Ur Specific [place] 1.015 Urine Protein NEGATIVE Urine Glucose (UA) NEGATIVE Urine Ketones NEGATIVE Urine Occult Blood NEGATIVE Urine Nitrite NEGATIVE Urine Bilirubin NEGATIVE Urine Urobilinogen 0.2 (NORMAL) Ur Leukocyte Esterase NEGATIVE Ur Microscopic Review NOT INDICATED Urine Culture Comments NOT INDICATED 12/21/19 12/22/19 12/22/19 06:10 04:10 04:10 WBC 22.4 H RBC 2.96 L Hgb 8.9 L Hct 28.6 L MCV 96.6 H MCH 30.1 MCHC 31.1 L RDW 17.2 H Plt Count 291 MPV 11.2 Neut # (Auto) 19.4 H Lymph # (Auto) 0.3 L [place] # (Auto) 2.3 H Eos # (Auto) 0.0 Baso # (Auto) 0.1 Absolute Nucleated RBC 0.00 Total Counted Band Neuts % (Manual) Reactive Lymphs % (Man) Abnorm Lymph % (Manual) Myelocytes % Nucleated RBC % 0.0 Neutrophils # (Manual) Lymphocytes # (Manual) Monocytes # (Manual) Eosinophils # (Manual) Basophils # (Manual) Differential Comment WBC Morphology Platelet Estimate Platelet Morphology RBC Morph Micro Appear PT INR Sodium 143 140 Potassium 3.8 4.0 Chloride 107 107 Carbon Dioxide 25 22 Anion Gap 11.0 11.0 BUN 19 24 H Creatinine 1.2 1.3 H Estimated GFR (MDRD) 59 L 54 L Glucose 104 H 80 Uric Acid Calcium 7.7 L 7.8 L Phosphorus Total Bilirubin AST ALT Alkaline Phosphatase Total Protein Albumin Globulin Albumin/Globulin Ratio Lipase Urine Color Urine Clarity Urine pH Ur Specific [place] Urine Protein Urine Glucose (UA) Urine Ketones Urine Occult Blood Urine Nitrite Urine Bilirubin Urine Urobilinogen Ur Leukocyte Esterase Ur Microscopic Review Urine Culture Comments PD MEDICAL DECISION MAKING - ED course Complexity details: reviewed old records, reviewed results, re-evaluated patient, d/w patient, d/w family ED course: 74 YEAR OLD MALE WITH METASTATIC RECTAL ADENOCARCINOMA, WHO PRESENTS TO THE EMERGENCY DEPARTMENT WITH WORSENING RECTAL PAIN AND DISCOMFORT SINCE 2 DAYS AGO. PATIENT ALSO HAS HAD NECK AND SHOULDER PAIN RECENTLY WELL. WITH A RECENT FEVER THE END OF LAST WEEK, PATIENT WAS STARTED ON PROPHYLATIC ANTIBIOTIC. CBC SHOWED LEUKOCYTOSIS. ETIOLOGY IS UNCLEAR AT THIS TIME. I REVIEWED PATIENT'S CLINIC NOTE WITH DR. CASTORENA. OVERALL, PATIENT IS DECLINING CLINICALLY. IF HE CONTINUES TO DECLINE, HOSPICE CARE WAS SUGGESTED. PATIENT WAS SCHEDULED TO SEE DR. CASTORENA AGAIN NEXT WEDNESDAY. PATIENT WAS GIVEN IV DILAUDID MULTIPLE TIMES FOR PAIN CONTROL. CT ABD/PEL IV CONTRAST SHOWED EXTENSIVE METASTATIC DISEASE WITHOUT ACUTE FINDINGS OF AN INFECTION. HE NORMALLY AMBULATES INDEPENDENTLY. HERE IN THE ED, HE WAS ABLE TO SIT UP ON GURNEY DUE TO SIGNIFICANT PAIN AND DESPITE DILAUDID. CASE WAS DISCUSSED WITH DR. PHO[place], ONCOLOGIST [employer] AND AT THIS TIME, HE DID NOT RECOMMEND ADDITIONAL CHEMOTHERAPY TREATMENT URGENTLY. HE RECOMMENDED PAIN CONTROL. PATIENT TAKES OXYCODONE AT HOME AND TOOK AN EXTRA DOSE AT HOME TONIGHT WITHOUT IMPROVEMENT OF PAIN. CASE WAS DISCUSSED WITH HOSPITALIST FOR ADMISSION FOR PAIN CONTROL AND FURTHER DIAGNOSTIC STUDIES. PATIENT AND WERE INFORMED OF PLAN. Departure - Departure Disposition: ED Place in Observation Clinical Impression: Back pain, Acute pain, Metastasis from rectal cancer Discharge Date/Time: 12/21/19 03:12
[2019-12-21 00:57] LABS: BILIRUBIN,URINE NEGATIVE (NEGATIVE); GLUCOSE, URINE (UA) NEGATIVE (NEGATIVE); KETONES,URINE (UA) NEGATIVE (NEGATIVE); LEUKOCYTE ESTERASE, URINE NEGATIVE (NEGATIVE); NITRITE,URINE NEGATIVE (NEGATIVE); OCCULT BLOOD,URINE NEGATIVE (NEGATIVE); PH,URINE 5.5 PH (5.0-7.5); PROTEIN,URINE NEGATIVE (NEGATIVE); UROBILINOGEN,URINE 0.2 (NORMAL) E.U./dL (NORMAL)
[2019-12-21 01:05] LABS: CLARITY,URINE CLEAR (CLEAR)
[2019-12-21] MEDS ORDERED: ONDANSETRON 4 MG/2 ML VIAL IVP PRN (02:18)
--- NOTE | 2019-12-21 02:24 | HISTORY & PHYSICAL EXAMINATION ---
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 presented to the ED with complain of intractable rectal and lower back pain. While he has had pain in this area for the past couple of years, it was very severe today to the point of being unable to walk. He normally takes 5-10 mg of oxycodone q4hrs prn at home. However this did not relief his pain today. In the ED he was given dilaudid 1mg IV X 2 with initial improvement of his pain. However attempting to get him in a seated position significantly exacerbates his pain. His starts dry heaving due to severe pain. He reports being able to walk unaided at home. However he was last seen at [place] [facility] [place]. During that visit it was noted that he had significantly declined compared to the previous week. He has become weaker and more tired. He complained of increased pain in his neck, back and right upper quadrant during that visit. As a result of his significant decline, chemotherapy was suspended. He was given a prescription for a 5-day course of levaquin. Tentative plan was to re-evaluate in a week or two to see if he would be a candidate for chemotherapy then. The option of hospice was discussed with him by Dr Moreno if it turns out that he is not a candidate. At bedside he is curled in a position on his left side. He is opposed to being moved because of significant pain. He denies chest pain, dyspnea or abdominal pain. He had a WBC of 18 and his SBP was as high as 200's. As a result of his presentation, he being admitted for further treatment History - Past Medical History Cardiovascular: reports: Hypertension Respiratory: reports: COPD Neuro: reports: Peripheral neuropathy Endocrine/Autoimmune: reports: None GI: reports: GERD, Colon polyps, Other : reports: Benign prostate hypertrophy HEENT: reports: Chronic hearing loss Psych: reports: Depression Musculoskeletal: reports: Osteoarthritis, Chronic back pain Derm: reports: Other MRSA Hx?: No - Past Surgical History General: reports: Bowel surgery - Family & Social History Family History: Mother: , CAD, Father: , Brother: Family History Comment/Other: Pt is living with his girlfriend at [place]. Pt had two children. Living arrangement: At home Social History Notes: pt deneis cigarette smoking, alcohol and drug abuse. 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 - Substance History Use: Uses substance without health or social issues: NONE, Tobacco - POLST Patient has POLST: Yes POLST Status: DNR Meds/Allgy - Home Medications Home Medications: Ambulatory Orders Medication Instructions Recorded Confirmed Cholecalciferol (Vitamin D3) 2,000 unit PO DAILY 04/26/17 12/14/19 [Vitamin D3] Loperamide [Imodium] 2 mg PO Q4HR PRN MDD 16 mg 04/26/17 12/14/19 Cyanocobalamin (Vitamin B-12) 5,000 mcg PO DAILY 03/10/18 12/14/19 [Vitamin B-12] Ondansetron [Ondansetron Odt] 4 mg PO Q6HR PRN 03/10/18 12/14/19 Prochlorperazine [Compazine] 5 - 10 mg PO Q6H PRN 03/10/18 12/14/19 lisinopriL [Zestril] 5 mg PO DAILY 03/10/18 12/14/19 Calcium Carbonate [Tums (Calcium 500 mg PO Q4-6H PRN #20 tablet 03/12/18 12/14/19 Carbonate 500mg)] Lidocaine/Prilocain 2.5% Cream 30 gm TOP UD PRN MDD portacath 06/15/18 12/14/19 [Emla 2.5% Cream] numbing Gabapentin 300 mg PO BID MDD titrating down 08/14/19 12/14/19 Senna [Senokot] 8.6 mg PO DAILY PRN 08/14/19 12/14/19 oxyCODONE [Roxicodone] 5 - 10 mg PO Q4HR PRN MDD 6 tabs 08/14/19 12/14/19 polyethylene glycoL 3350 [Miralax] 17 gm PO DAILY PRN 08/14/19 12/14/19 Hydrocortisone 1% Oint 1 applic TOP BID 08/16/19 12/14/19 [Hydrocortisone] Minocycline HCl 100 mg PO DAILY 08/16/19 12/14/19 Omeprazole 20 mg PO DAILY 08/16/19 12/14/19 - Allergies Allergies/Adverse Reactions: Allergies Allergy/AdvReac Type Severity Reaction Status Date / Time No Known Drug Allergies Allergy Verified 12/20/19 21:42 Review of Systems - Constitutional Constitutional: reports: Fatigue, Weakness - Eyes Eyes: denies: Pain, Vision loss - Ears, Nose & Throat Ears, Nose & Throat: denies: Vertigo, Sore throat - Cardiovascular Cariovascular: reports: Decr. exercise tolerance. denies: Palpitations, Chest pain, Edema, Syncope, Exertional dyspnea - Respiratory Respiratory: denies: Cough, Sputum production, Wheezing, Snoring, Hemoptysis, Orthopnea, SOB at rest, SOB with exertion - Gastrointestinal Gastrointestinal: reports: Nausea, Other (severe rectal pain). denies: A bdominal pain, Abdominal distention, Vomiting - Genitourinary Genitourinary: denies: Dysuria, Frequency, Urgency, Hematuria, Incontinence, Flank pain, Nocturia, Urethral discharge - Musculoskeletal Musculoskeletal: reports: Back pain (severe back pain) - Integumentary Integumentary: reports: Dryness. denies: Rash, Pruritis, Lesions - Neurological Neurological: reports: General weakness. denies: Headache, Dizziness - Psychiatric Psychiatric: reports: Depression. denies: Anxiety - Endocrine Endocrine: denies: Polyuria, Polydypsia - Hematologic/Lymphatic Hematologic/Lymphatic: denies: Anemia, Bruising, Petechiae Prior Level of Functionality: Patient has progressively declined recently. he has become weaker. he used to be able to ambulate but is now unable to tolerate sitting up. Exam - Vital Signs Vital Signs: Vital Signs x48h Temp Pulse Resp BP Pulse Ox 12/21/19 01:04 98 16 167/87 H 94 12/20/19 23:30 101 H 14 165/91 H 93 12/20/19 22:21 94 16 154/60 H 98 12/20/19 20:59 36.6 C 122 H 16 210/98 H 98 - Physical Exam General Appearance: positive: Alert, Moderate distress, Severe distress Eyes Bilateral: positive: PERRL, EOMI ENT: positive: Dry mucous membranes Neck: positive: No JVD, Trachea midline Respiratory: positive: Chest non-tender, No respiratory distress, Breath sounds nml. negative: Wheezes, Rales, Rhonchi Cardiovascular: positive: Regular rate & rhythm Abdomen: positive: Non-tender, No organomegaly, Nml bowel sounds, No distention. negative: Guarding, Rebound Rectal: positive: Tenderness Back: positive: Other (tenderness to palpation to lumbosacral area) Skin: positive: Color nml, No rash, Warm, Dry Extremities: positive: Nml appearance, No pedal edema Neurologic/Psychiatric: positive: Oriented x3, CN's nml (2-12), Depressed mood/affect Conclusion/Plan - Problem List (1) Intractable low back pain Conclusion/Plan: Likely 2/2 progression of metastatic rectal adenocarcinoma Pain management with dilaudid 0.5mg IV q2hrs prn Will increase pain management as indicated Will continue oxycodone as well (2) Hypertensive urgency Conclusion/Plan: Likely also worsened by pain from malignancy Labetalol 10mg IV q4hrs prn for SBP> 160. Will add hydralazine if needed Pain management with dilaudid and oxycodone (3) Metastasis from rectal cancer Conclusion/Plan: Patient seed oncologist Dr Montoya and [place] [facility] [place] currently on hold due to decline in clinical status Patient prescribed levaquin. Will switch to cefepime and vancomycin Patient is a likely candidate for hospice consult (4) Leukocytosis Conclusion/Plan: Etiology undetermined. ?Reactive vs Infectious. Blood cultures drawn. CXR and CT abd/pelvis was unremarkable Patient on levaquin. Will switch to cefepime and vancomycin empirically. - Lab Results Fish Bones: 12/20/19 21:25 12/20/19 21:25 Core Measures - Anticipated LOS I expect patient to be DC'd or transferred within 96 hours.: Yes - DVT/VTE - Prophylaxis VTE/DVT Device ordered at admit?: Yes VTE/DVT Prophylaxis med ordered at admit?: Yes
[2019-12-21] MEDS ORDERED: HYDROmorphone 1 MG/ML CARPUJECT IVP STA (02:39)
[2019-12-21 02:42] LABS: PHOSPHORUS 3.7 mg/dL (2.5-4.6); URIC ACID 9.3 mg/dL (2.6-7.2)
--- NOTE | 2019-12-21 03:36 | XRAY Report ---
Reason: COUGH Procedure Date: 12/21/2019 Accession Number: [id number] / [id number] Procedure: XR - Chest 1 View X-Ray CPT Code: 02263 Final Report FULL RESULT: EXAM: CHEST RADIOGRAPHY EXAM DATE: 12/21/2019 02:35 AM. CLINICAL HISTORY: COUGH. COMPARISON: 12/14/2019. TECHNIQUE: 1 view. FINDINGS: Lungs/Pleura: Right upper lobe lung mass again seen. No new alveolar consolidation or pleural effusion seen. No pneumothorax. Mediastinum: Within exam limitations, the cardiomediastinal contour is normal. Other: Osteopenia. Right-sided PowerPort with the tip at the cavoatrial junction. IMPRESSION: Right upper lobe lung mass. No new abnormality seen. RADIA
[2019-12-21] MEDS: HYDROmorphone 0.5 MG/0.5 ML SYRINGE IVP PRN ×5 (03:59→21:20)
[2019-12-21] MEDS: LABETALOL 5 MG/1 ML 20 ML MDV IVP PRN ×4 (04:00→20:50)
[2019-12-21] MEDS: SODIUM CHLORIDE 0.9% 1,000 ML IV SCH ×3 (04:01→17:31)
[2019-12-21] MEDS ORDERED: ACETAMINOPHEN 325 MG TABLET PO PRN (05:09)
[2019-12-21] MEDS: CEFEPIME 2 GM in SODIUM CHLORIDE 0.9% MINIBAG 100 ML IV SCH ×2 (05:54→17:30)
[2019-12-21] MEDS ORDERED: VANCOMYCIN PER PHARMACY 100 GM in SODIUM CHLORIDE 0.9% 250 ML IV SCH (06:00)
[2019-12-21] MEDS ORDERED: VANCOMYCIN INJ 1 GM in SODIUM CHLORIDE 0.9% 250 ML IV SCH (06:00)
[2019-12-21 06:21] LABS: BASOPHILS % (AUTO) 0.4 %; HGB - HEMOGLOBIN 9.6 g/dL (14.0-18.0); LYMPHOCYTES % (AUTO) 1.8 %; MEAN CORPUSCULAR HEMOGLOBIN 28.9 pg (27.0-31.0); MEAN CORPUSCULAR HGB CONC 30.5 g/dL (32.0-36.0); MEAN CORPUSCULAR VOLUME 94.9 fL (80.0-94.0); MEAN PLATELET VOLUME 10.7 fL (7.4-11.4); MONOCYTES % (AUTO) 11.2 %; NEUTROPHILS % (AUTO) 84.9 %; PLT - PLATELET COUNT 311 10^3/uL (130-450); RED BLOOD COUNT 3.32 10^6/uL (4.70-6.10); RED CELL DISTRIBUTION WIDTH 17.1 % (12.0-15.0); WHITE BLOOD COUNT 18.7 x10^3/uL (4.8-10.8)
[2019-12-21 06:25] LABS: ABNORMAL LYMPHS % (MANUAL) 0 %; BAND NEUTROPHILS % (MANUAL) 0 %
[2019-12-21 06:26] LABS: CALCIUM 7.7 mg/dL (8.5-10.3); CREATININE 1.2 mg/dL (0.6-1.2)
[2019-12-21] MEDS: PANTOPRAZOLE 40 MG TABLET PO SCH (07:00)
[2019-12-21 07:09] LABS: DIFFERENTIAL COMMENT MANUAL DIFFERENTIAL; LYMPHOCYTES # (MANUAL) 0.6 10^3/uL (1.5-3.5); LYMPHOCYTES % (MANUAL) 2 %; MONOCYTES # (MANUAL) 1.3 10^3/uL (0.0-1.0); MYELOCYTES % (MANUAL) 2 %; RBC MORPHOLOGY (MULTIPLE) 3+ ANISOCYTOSIS (NORMAL)
[2019-12-21] MEDS: ENOXAPARIN 40 MG/0.4 ML SYRINGE SUBQ SCH (08:11)
[2019-12-21] MEDS: SODIUM CHLORIDE FLUSH 0.9% 10 ML SYRINGE IVP SCH ×2 (08:11→16:08)
[2019-12-21] MEDS: SODIUM CHLORIDE FLUSH 0.9% 10 ML SYRINGE IVP PRN (10:22)
--- NOTE | 2019-12-21 10:30 | PHARMACY PROGRESS NOTE ---
- Therapy Status Vancomycin regimen day #: 2 Therapy status: Awaiting steady state Basis for treatment: Empirical Treatment indication: LEUKOCYTOSIS Trough goal: 15-20 Concurrent antibiotics: CEFEPIME - ERWIN Risk Risk level for Acute Kidney Injury: Moderate Acute Kidney Injury risk factors: Goal trough >15 - Monitoring and Recommendation Clinical response to treatment: I&O Previous 24 hours 12/19/19 12/20/19 12/21/19 23:59 23:59 23:59 Intake Total 1000 1100 Output Total 150 Balance 1000 950 Lab Results 12/21/19 12/20/19 06:10 21:25 BUN 19 22 H Creatinine 1.2 1.5 H Estimated GFR (MDRD) 59 L 46 L Monitoring plan: Daily serum creatinine
[2019-12-21] MEDS ORDERED: LIDOCAINE 2% URO-JET 5 ML SYRINGE UR SCH (11:36)
[2019-12-21] MEDS: oxyCODONE 5 MG TABLET PO PRN ×4 (11:37→22:31)
[2019-12-21] MEDS ORDERED: TAMSULOSIN 0.4 MG CAPSULE PO SCH (12:00)
--- NOTE | 2019-12-21 16:30 | PHARMACY PROGRESS NOTE ---
- Best Possible Medication History Admit Date and Time: 12/21/19 0218 Processed by: Pharmacy Medication History completed: Yes Patient Interview: Completed Secondary Source(s): Physician records, Pharmacy records, Insurance records As the person ultimately responsible for medication therapy, providers are able to order a medication from an existing home medication list in [facility] via the "Reconcile Routine" prior to Confirmation of that medication by biomedical equipment support specialist. Such practice is discouraged except when the physician, in their clinical judgment, deems that a medical need exists for a medication without regard to previous use.
[2019-12-21] MEDS: GABAPENTIN 300 MG CAPSULE PO SCH (20:50)
[2019-12-22] MEDS ORDERED: VANCOMYCIN INJ 1 GM in SODIUM CHLORIDE 0.9% 250 ML IV SCH ×2
[2019-12-22] MEDS: SODIUM CHLORIDE FLUSH 0.9% 10 ML SYRINGE IVP SCH ×4 (00:38→23:53)
[2019-12-22] MEDS: HYDROmorphone 0.5 MG/0.5 ML SYRINGE IVP PRN ×2 (00:42→08:43)
[2019-12-22] MEDS: LABETALOL 5 MG/1 ML 20 ML MDV IVP PRN ×2 (04:15→19:41)
[2019-12-22 04:44] LABS: BASOPHILS # (AUTO) 0.1 10^3/uL (0.0-0.1); BASOPHILS % (AUTO) 0.6 %; HGB - HEMOGLOBIN 8.9 g/dL (14.0-18.0); LYMPHOCYTES # (AUTO) 0.3 10^3/uL (1.5-3.5); LYMPHOCYTES % (AUTO) 1.2 %; MEAN CORPUSCULAR HEMOGLOBIN 30.1 pg (27.0-31.0); MEAN CORPUSCULAR HGB CONC 31.1 g/dL (32.0-36.0); MEAN CORPUSCULAR VOLUME 96.6 fL (80.0-94.0); MEAN PLATELET VOLUME 11.2 fL (7.4-11.4); MONOCYTES # (AUTO) 2.3 10^3/uL (0.0-1.0); MONOCYTES % (AUTO) 10.3 %; NEUTROPHILS # (AUTO) 19.4 10^3/uL (1.5-6.6); NEUTROPHILS % (AUTO) 86.4 %; PLT - PLATELET COUNT 291 10^3/uL (130-450); RED BLOOD COUNT 2.96 10^6/uL (4.70-6.10); RED CELL DISTRIBUTION WIDTH 17.2 % (12.0-15.0); WHITE BLOOD COUNT 22.4 x10^3/uL (4.8-10.8)
[2019-12-22 04:53] LABS: CALCIUM 7.8 mg/dL (8.5-10.3); CREATININE 1.3 mg/dL (0.6-1.2)
[2019-12-22] MEDS: PANTOPRAZOLE 40 MG TABLET PO SCH (05:49)
[2019-12-22] MEDS: CEFEPIME 2 GM in SODIUM CHLORIDE 0.9% MINIBAG 100 ML IV SCH (05:49)
[2019-12-22] MEDS: oxyCODONE 5 MG TABLET PO PRN ×4 (05:49→21:07)
[2019-12-22] MEDS ORDERED: SODIUM CHLORIDE 0.9% 500 ML IV PRN ×2 (08:17→08:33)
[2019-12-22] MEDS: GABAPENTIN 300 MG CAPSULE PO SCH (08:46)
[2019-12-22] MEDS: ENOXAPARIN 40 MG/0.4 ML SYRINGE SUBQ SCH (08:46)
--- NOTE | 2019-12-22 15:35 | PROVIDER PROGRESS NOTE ---
Subjective - Prog Note Date Prog Note Date: 12/22/19 Prog Note Time: 15:39 - Subjective Pt reports feeling: No change Subjective: Rasheed has no complaints of more difficulty with breathing and is using accessory muscles when breathing. Difficult to speak in full sentences without taking a deep breath. Hospice discharge is pending a safe discharge either to [facility] or [place] to a SNF for Hospice care. Today, the patient has intravascular congestion based on vital signs, increased work of breathing, and poor urine output. Giving IV lasix for fluid overload and for symptom management. He continues on IV antibiotics empirically for WBC count elevation, likely pneumonia given respiratory symptoms. Current Medications - Current Medications Current Medications: Active Medications: Acetaminophen (Tylenol) 650 mg PO Q8HR PRN Enoxaparin Sodium (Lovenox) 40 mg SUBQ DAILY LADONNA Gabapentin (Neurontin) 300 mg PO BID LADONNA Heparin Sodium (Beef Lung) 30 - 50 unit IVP PRN PRN Hydromorphone HCl (Dilaudid Inj Syringe) 0.5 mg IVP Q2H PRN Piperacillin Sod/Tazobactam (Sod 3.375 gm/ Sodium Chloride) Labetalol HCl (Trandate Inj) 10 mg IVP Q4H PRN Ondansetron HCl (Zofran Inj) 4 mg IVP Q4HR PRN Oxycodone HCl (Roxicodone) 5 mg PO Q4HR PRN Pantoprazole Sodium (Protonix) 40 mg PO QDAC LADONNA Lasix IV 40mg x1 HOME meds: Cholecalciferol (Vitamin D3) [Vitamin D3] 2,000 unit PO DAILY 04/26/17 Loperamide [Imodium] 2 mg PO Q4HR PRN MDD 16 mg 04/26/17 Cyanocobalamin (Vitamin B-12) [Vitamin B-12] 5,000 mcg PO DAILY 03/10/18 Ondansetron [Ondansetron Odt] 4 mg PO Q6HR PRN 03/10/18 Prochlorperazine [Compazine] 5 - 10 mg PO Q6H PRN 03/10/18 lisinopriL [Zestril] 5 mg PO DAILY 03/10/18 Lidocaine/Prilocain 2.5% Cream [Emla 2.5% Cream] 1 applic TOP UD PRN MDD portacath numbing 06/15/18 Senna [Senokot] 8.6 mg PO DAILY PRN 08/14/19 polyethylene glycoL 3350 [Miralax] 17 gm PO DAILY PRN 08/14/19 Minocycline HCl 100 mg PO DAILY 08/16/19 Omeprazole 20 mg PO DAILY 08/16/19 Gabapentin 300 mg PO BID 12/21/19 hydroCHLOROthiazide [Hydrochlorothiazide] 25 mg PO DAILY 12/21/19 Objective - Vital Signs/Intake & Output Reviewed Vital Signs: Yes Vital Signs: Vital Signs x48h Temp Pulse Resp BP Pulse Ox 12/22/19 12:05 36.7 C 94 24 158/91 H 96 Intake & Output: Intake & Output 12/19/19 12/20/19 12/21/19 12/22/19 23:59 23:59 23:59 23:59 Intake Total 1000 3345 1144 Output Total 1180 325 Balance 1000 2165 819 - Objective General Appearance: positive: Alert, Mild distress Eyes Bilateral: positive: PERRL ENT: positive: No signs of dehydration Neck: positive: No JVD, Trachea midline Respiratory: positive: Chest non-tender, No respiratory distress, Wheezes, Other (scattered crackles bilaterally) Cardiovascular: positive: Regular rate & rhythm, Systolic murmur, Decreased pul se(s) Peripheral Pulses: 1+ Radial (R), 1+ Radial (L) Abdomen: positive: Non-tender, Nml bowel sounds Back: positive: Nml inspection Skin: positive: No rash, Warm, Dry, Other (bronze toned skin) Extremities: positive: Non-tender, Nml appearance Neurologic/Psychiatric: positive: CN's nml (2-12), Disoriented to time, Weakness, Sensory loss, Depressed mood/affect (flat) Reflexes: Bicep (R): 3+, Bicep (L): 3+ - Lab Results Fish Bones: 12/22/19 04:10 12/22/19 04:10 Other Labs: Lab Results x24hrs 12/22/19 12/22/19 Range/Units 04:10 04:10 WBC 22.4 H (4.8-10.8) x10^3/uL RBC 2.96 L (4.70-6.10) 10^6/uL Hgb 8.9 L (14.0-18.0) g/dL Hct 28.6 L (42.0-52.0) % MCV 96.6 H (80.0-94.0) fL MCH 30.1 (27.0-31.0) pg MCHC 31.1 L (32.0-36.0) g/dL RDW 17.2 H (12.0-15.0) % Plt Count 291 (130-450) 10^3/uL MPV 11.2 (7.4-11.4) fL Neut # (Auto) 19.4 H (1.5-6.6) 10^3/uL Lymph # (Auto) 0.3 L (1.5-3.5) 10^3/uL [place] # (Auto) 2.3 H (0.0-1.0) 10^3/uL Eos # (Auto) 0.0 (0.0-0.7) 10^3/uL Baso # (Auto) 0.1 (0.0-0.1) 10^3/uL Absolute Nucleated RBC 0.00 x10^3/uL Nucleated RBC % 0.0 /100WBC Sodium 140 (135-145) mmol/L Potassium 4.0 (3.5-5.0) mmol/L Chloride 107 (101-111) mmol/L Carbon Dioxide 22 (21-32) mmol/L Anion Gap 11.0 (6-13) BUN 24 H (6-20) mg/dL Creatinine 1.3 H (0.6-1.2) mg/dL Estimated GFR (MDRD) 54 L (>89) Glucose 80 (70-100) mg/dL Calcium 7.8 L (8.5-10.3) mg/dL ABX Reporting Has patient been on IV antibiotics over the past 48 hours?: Yes Assessment/Plan - Problem List (1) Intractable low back pain Impression: -Likely due to progression of metastatic rectal adenocarcinoma, distended bladder -Pain management with dilaudid 0.5mg IV q2hrs prn Urinary retention -Likely also worsened by pain from malignancy -Indwelling singer placed yesterday, which has eased the pain slightly Pneumonia -Etiology undetermined, cultures remain negative -Now with respiratory symptoms, more confusion, increased cough, and an oxygen need -Blood cultures drawn. 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
[2019-12-22] MEDS ORDERED: FUROSEMIDE 40 MG/4 ML VIAL IVP ONE (15:51)
[2019-12-22] MEDS ORDERED: PIPERACILLIN/TAZOBACTAM 3.375 GM in SODIUM CHLORIDE 0.9% MINIBAG 100 ML IV ONE (16:00)
--- NOTE | 2019-12-22 16:07 | CONSULTATION NOTE ---
Palliative Care Follow Up - Referral Referring Provider: Hiral HOWE Time of Visit: [id number] Referral setting: Hospitalized patient Referral Reason: Rectal CA with liver mets/Goals of Care - Information Sources Records reviewed: Previous records reviewed History/Review of Systems obtained from: Patient, Family (son Jerman Lal present and Chanel his s/0) Exam limitations: Clinical condition (patient drifty and slow to respond but able to participate) - History of Present Illness Update Brief HPI Update: This is a connor 74-year-old gentleman with metastatic rectal carcinoma, involving the liver and lungs. He was originally diagnosed and received concurrent chemotherapy to the rectum with Xeloda 01/2017, his original surgery was a left hemicolectomy with a lower anterior resection in May 2015. He is has had multiple rounds of chemotherapy, unfortunately his disease his continue to progress with increase in his CEA. On his most recent CT scan on 11/28/2019 disease progression in both his lungs and liver were noted. The plan was to hold the irinotecan and Erbitux, and after discussion return to her previous treatment which included FOLFOX 6. Patient has been on a break as he has not t olerated the treatment, as well as was experiencing both functional decline and increasing symptoms related to his progressive disease. Unfortunately last week, he did present with ongoing severe weakness, increased breathlessness, and doing very poorly with poor appetite and dehydration at home. Patient was not keen on going to the ED, did receive fluids, was fairly severely anemic, and also chest x-ray which did not show infection. In repeat of his labs, other remarkable component was his white blood cell count continued to increase, added a UA, and blood cultures all which were negative, and unknown source of his leukocytosis, though certainly could be his disease process. Patient did receive 2 units of PRBCs to see if he would improve, had drifted down 7.3, had not dropped before. No identified s/s of blood loss. Patient finally spiked a temp, over the weekend, again given his resistance to coming into the ED, was initiated on treatment of Levaquin, but his white count was not impacted. Patient also continued with hypertension, patient at baseline was on lisinopril 5 mg, was increased to 10 mg with still fairly high readings but some improvement. When he saw oncology on Wednesday, he was still too weak to continue to be doing poorly, in conversation regarding hospice was initiated. But decision was made, to see if patient responded further to the antibiotics, and re-evaluate next week. He received fluids of 500 mils that day of normal saline. Patient with increasing pain, had increased his oxycodone use, I suspect this added already to his urinary retention symptoms and causing acute retention over the next couple days. Unfortunately patient ended up with acute urinary retention, increasing rectal pain, and an emergent admit to [facility] 12/21. His pain has been improved, he has received 2.5 mg of Dilaudid and 30 mg of oxycodone in the last 24 hours with good relief. Patient did have a repeat CT scan, that showed even further progression and extensive hepatic metastatic disease. Most of his pain is centralized to his right upper quadrant at this point in time, tender to palpation, and enlarged. Patient also has a small left-sided pleural effusion, with numerous nodules in his lung bases. 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 Social History - Living Situation Living arrangement: At home Living Situation: With spouse/s.o. Support System: Patient lives at home with his significant other Chanel. They have been together for 20 years, she has seen him through most of this illness. 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 He does have 2 children, a son and a daughter. They have not been actively involved in his caregiving, Chanel did agree to contacted Jerman, and he is present today for the meeting. Jerman does talk to his dad on a weekly basis, and has been up intermittently but not involved in his health issues up to this point. Medications/Allergies - Medications Active Medication List: Active Medications Acetaminophen (Tylenol) 650 mg PO Q8HR PRN PRN Reason: Pain or Fever > 38C (100.4F) Enoxaparin Sodium (Lovenox) 40 mg SUBQ DAILY [facility] Last Admin: 12/22/19 08:46 Dose: 40 mg Gabapentin (Neurontin) 300 mg PO BID [facility] Last Admin: 12/22/19 08:46 Dose: 300 mg Heparin Sodium (Beef Lung) () 30 - 50 unit IVP PRN PRN PRN Reason: Port Protocol (<24 hours) Last Admin: 12/22/19 09:42 Dose: 50 unit Hydromorphone HCl (Dilaudid Inj Syringe) 0.5 mg IVP Q2H PRN PRN Reason: Pain 8 to 10 Last Admin: 12/22/19 08:43 Dose: 0.5 mg Piperacillin Sod/Tazobactam (Sod 3.375 gm/ Sodium Chloride) 100 mls @ 200 mls/hr IV ONCE ONE Stop: 12/22/19 16:29 Piperacillin Sod/Tazobactam (Sod 3.375 gm/ Sodium Chloride) 100 mls @ 25 mls/hr IV Q8H [facility] Labetalol HCl (Trandate Inj) 10 mg IVP Q4H PRN PRN Reason: PER PHYSICIAN ORDER Last Admin: 12/22/19 04:15 Dose: 10 mg Ondansetron HCl (Zofran Inj) 4 mg IVP Q4HR PRN PRN Reason: Nausea / Vomiting Oxycodone HCl (Roxicodone) 5 mg PO Q4HR PRN PRN Reason: PAIN Last Admin: 12/22/19 11:17 Dose: 5 mg Pantoprazole Sodium (Protonix) 40 mg PO QDAC [facility] Last Admin: 12/22/19 05:49 Dose: 40 mg Sodium Chloride (Normal Saline Flush 0.9%) 10 ml IVP PRN PRN PRN Reason: NEEDED PER PROVIDER ORDERS Last Admin: 12/21/19 10:22 Dose: 20 ml Sodium Chloride (Normal Saline Flush 0.9%) 10 ml IVP 0100,0900,1700 [facility] Last Admin: 12/22/19 08:46 Dose: 10 ml Cholecalciferol (Vitamin D3) [Vitamin D3] 2,000 unit PO DAILY 04/26/17 Loperamide [Imodium] 2 mg PO Q4HR PRN MDD 16 mg 04/26/17 Cyanocobalamin (Vitamin B-12) [Vitamin B-12] 5,000 mcg PO DAILY 03/10/18 Ondansetron [Ondansetron Odt] 4 mg PO Q6HR PRN 03/10/18 Prochlorperazine [Compazine] 5 - 10 mg PO Q6H PRN 03/10/18 lisinopriL [Zestril] 5 mg PO DAILY 03/10/18 Lidocaine/Prilocain 2.5% Cream [Emla 2.5% Cream] 1 applic TOP UD PRN MDD portacath numbing 06/15/18 Senna [Senokot] 8.6 mg PO DAILY PRN 08/14/19 polyethylene glycoL 3350 [Miralax] 17 gm PO DAILY PRN 08/14/19 Minocycline HCl 100 mg PO DAILY 08/16/19 Omeprazole 20 mg PO DAILY 08/16/19 Gabapentin 300 mg PO BID 12/21/19 hydroCHLOROthiazide [Hydrochlorothiazide] 25 mg PO DAILY 12/21/19 - Allergies Allergies/Adverse Reactions: Allergies Allergy/AdvReac Type Severity Reaction Status Date / Time No Known Drug Allergies Allergy Verified 12/20/19 21:42 Review of Systems - Constitutional Constitutional: reports: Fatigue, Poor appetite, Weight loss. denies: Fever, Chills - Eyes Eyes: reports: Vision loss - Ears, Nose & Throat Ears, Nose & Throat: reports: Hearing loss, Hoarseness, Dental decay, Dry mouth - Cardiovascular Cardiovascular: reports: Exertional dyspnea, Decr. exercise tolerance - Respiratory Respiratory: reports: Wheezing, SOB at rest, SOB with exertion - Gastrointestinal Gastrointestinal: reports: Constipation (intermittent), Reflux/heartburn, Poor appetite, Early satiety. denies: Nausea - Genitourinary Genitourinary: reports: Other (has singer catheter) - Musculoskeletal Musculoskeletal: reports: Muscle pain, Back pain, Muscle aches, Stiffness, Limited range of motion, Muscle weakness, Other (has been mostly on couch/bed for a couple of weeks now; needing wheelchair;) - Integumentary Integumentary: reports: Dryness, Hair changes (alopecia) - Neurological Neurological: reports: General weakness, Memory problems, Abnormal gait (severe peripheral neuropathy; has not been able to stand for sustained period of time for months; worsening over last few weeks) - Psychiatric Psychiatric: reports: Depression, Anxiety - Hematologic/Lymphatic Hematologic/Lymphatic: reports: Anemia (recent blood transufsion). denies: Recurrent infections (unable to identify source; previous ua/blood cultures all negative) - All Other Systems All Other Systems: reports: Other (limited ROS) Physical Exam - Vital Signs Vital Signs: Vital Signs x48h Temp Pulse Resp BP BP Pulse Ox 02/28/20 15:48 36.9 C 97 22 145/89 H 95 12/22/19 12:05 36.7 C 94 24 158/91 H 96 - Physical Exam General Appearance: positive: Mild distress, Lethargic Eyes Bilateral: positive: Normal inspection ENT: positive: Dry mucous membranes, Other (poor dentition) Neck: positive: Trachea midline Cardiovascular: positive: Regular rate & rhythm Respiratory: positive: Wheezes (upper airway; attributed to fluid overload currently). negative: No respiratory distress (mild respiratory effort) Abdomen: positive: Tenderness (RUQ), Guarding, Hepatomegaly, Taut Skin: positive: Pallor, Dryness, Other Extremities: positive: No pedal edema Neurologic/Psychiatric: positive: Weakness, Flat affect Palliative Care - POLST Patient has POLST: Yes POLST Status: DNR, Selective Treatment Pain: Pain improved, Location (rectal pain/discomfort resolved; back still problematic and RUQ; reports getting relief with medication; is asking) Tiredness/Fatigue: Severe (7-10) Drowsiness/Sedation: Severe (7-10) Nausea: None Anorexia: Severe (7-10), Weight loss Dyspnea: Moderate (4-6) Depression: Mild (1-3) Anxiety: Moderate (4-6) Feelings of wellbeing/Perceived Quality of Life: Poor, Worsening Performance Status: Patient's functional status has been deteriorating fairly rapidly, has been spending most of his time on his couch the last few weeks. Increased lower ext remity weakness, difficulty with any kind of activity tolerance. This is been attributed both fatigue, lower extremity weakness and back pain, as well as baseline neuropathy. Patient currently has been bedbound since hospitalization, remains quite weak, needing assistance with bed mobility, currently has Singer. - Palliative Care Discussion: Family meeting with significant other Chanel Shaneka and son Jerman Lal. Chanel and I had a conversation yesterday, regarding the continuum of care, patient's ongoing decline, and appropriateness to transition to hospice. She had quite a bit of hesitancy about taking him home, does not see with her back and how stressful that would be taking it on. We had agreed at this point in time, would be important to include his son Jerman, and he is here with us today for goals of care conversation. Patient is somewhat distressed with this, this has more to do with he does not want to burden Chanel or his son. He is quite surprised that he is at this point so quickly, though he has had rapid functional decline, and Dr. Moreno had provided this information at his last visit that hospice would be the next step if he didn't improve. Given patient's fragile state, patient is not going to be able to tolerate any further chemotherapy. Patient is rapidly declining, and now shows even more rapid disease progression in his liver. He is bedbound, with increased symptom burden, quite cachectic, and continues to cognitive decline as well. Patient did share privately he would like to go or be at home to , but is much more adamant about not having this happen given he does not want to be a burden to Chanel and or his son Jerman. He is worried about that if they took this on, they would regret it. And he does not want to ask them for that. He is somewhat fearful when asked. We did have a chance to talk together without Don and Chanel present. Long lengthy discussion with patient slow responses, about weighing benefits and burdens as he had filled out to [facility] MURPHY's 1 with his son first and 1 with Chanel first, and Chanel would like to defer to Don given he is his blood relative, and feels this would be less complicated. They are both in agreement though to shared decision making and support Chuckie and his wishes and goals. We discussed in the continuum of care, what the hospice benefit will provide and not provide. We discussed no room and board, so would have to pay privately for snf placement. In the discussion Chanel is hopeful that he could be placed over in [facility] as son lives in [place], she has a house in [place] and make it convenient for his family members to visit more local placement than on [facility]. They do understand it would be responsible most likely for a months moving forward upfront and reviewed estimated costs. We did discuss [facility], an adult family home that provides end-of-life care. They are very much interested, though aware there is limited availability. I did reach out to [facility], as this would be a connor resource and support to this patient and family. They are aware and may not be available but she is willing to come up and provide an interview and evaluate if appropriate. Did secure a hospice spot on Wednesday with [facility] for an admit if they are able to transition to [facility]. Results - Lab Results Lab results reviewed: Yes Fish Bones: 12/22/19 04:10 12/22/19 04:10 Lab and Imaging Results: Lab Results x24hrs 12/22/19 12/22/19 Range/Units 04:10 04:10 WBC 22.4 H (4.8-10.8) x10^3/uL RBC 2.96 L (4.70-6.10) 10^6/uL Hgb 8.9 L (14.0-18.0) g/dL Hct 28.6 L (42.0-52.0) % MCV 96.6 H (80.0-94.0) fL MCH 30.1 (27.0-31.0) pg MCHC 31.1 L (32.0-36.0) g/dL RDW 17.2 H (12.0-15.0) % Plt Count 291 (130-450) 10^3/uL MPV 11.2 (7.4-11.4) fL Neut # (Auto) 19.4 H (1.5-6.6) 10^3/uL Lymph # (Auto) 0.3 L (1.5-3.5) 10^3/uL [place] # (Auto) 2.3 H (0.0-1.0) 10^3/uL Eos # (Auto) 0.0 (0.0-0.7) 10^3/uL Baso # (Auto) 0.1 (0.0-0.1) 10^3/uL Absolute Nucleated RBC 0.00 x10^3/uL Nucleated RBC % 0.0 /100WBC Sodium 140 (135-145) mmol/L Potassium 4.0 (3.5-5.0) mmol/L Chloride 107 (101-111) mmol/L Carbon Dioxide 22 (21-32) mmol/L Anion Gap 11.0 (6-13) BUN 24 H (6-20) mg/dL Creatinine 1.3 H (0.6-1.2) mg/dL Estimated GFR (MDRD) 54 L (>89) Glucose 80 (70-100) mg/dL Calcium 7.8 L (8.5-10.3) mg/dL Impression and Recommendations - Palliative Care Impression: This is a 74-year-old gentleman with metastatic rectal cancer involving liver and lungs, with confirmed progression in liver and lung, and now even more rapid progression in his liver. He does present with high symptom burden, fatigue, dyspnea, pain, and functional decline. Patient has been admitted acutely, with very little improvement, goal is to transition to hospice on discharge. Palliative care providing support regarding defining goals of care and tr ansition plan. Recommendations/Counseling Done: 1. Pain of neoplastic origin. Patient currently being managed with short acting opioids, would recommend transitioning to oral from IV, in preparation for transition plan. Patient equal analgesic opioid use in last 24 hours, would recommend transitioning to fentanyl 25 mcg Transderm. Patient does have some legal documents that do need to get done, would not place until either patient is no longer able to participate in that process, or able to complete his paperwork. Patient does feel current short acting medications, currently managing his discomfort. Patient though has been initiating request, as he transitions and deteriorates, will need baseline long-acting pain medication on board. 2. Urinary retention. Would recommend leaving Singer catheter in, for comfort and ease of caregiving. 3. Metastatic rectal carcinoma with liver and lung mets. Patient continues to show rapid deterioration and progression of liver mets.Patient most likely with his rapid disease progression, functional decline, and high symptom burden has days to weeks. Patient does understand after much discussion, would not be a ca ndidate for further treatment at this point, this would cause more harm than good. Patient will continue with antibiotics and fluids until discharge as still trying to finish financial dpoa and documents. 4. Advanced care planning. Patient and family conference, regarding the continuum of care, goal is to have a comfortable respectful . Patient to transition to hospice, attempting to identify placement options as patient does not want to be cared for primarily at home by his son or significant other. Will explore [facility] as an option, as this would be supportive, but will need to meet their criteria as well as need to follow up on availabilty. [facility] has set aside Wednesday AM admit if goes to [facility]. This would be identified his plan A after much discussion. Plan b, will be placement in a SNF nearer son and family in [facility] or [place]. Would recommend referral to [facility] or local hospice [facility], to be able to facilitate smooth transition. Family counseled to explore feedback on Internet, and if have family member or friend that can physically go and evaluate is helpful. Time Spent: 105 minutes with greater than 50% of this done in counseling, regarding family meeting, goals of care, coordination of care with hospitalist and hospital team, coordination of care with hospice and [facility]/transition plan
[2019-12-22] MEDS ORDERED: IPRATROPIUM/ALBUTEROL 3 ML NEB INH PRN (16:22)
[2019-12-22] MEDS: guaiFENesin 600 MG TABLET PO SCH (19:07)
[2019-12-22] MEDS: PIPERACILLIN/TAZOBACTAM 3.375 GM in SODIUM CHLORIDE 0.9% MINIBAG 100 ML IV SCH (19:26)
[2019-12-22] MEDS: SODIUM CHLORIDE FLUSH 0.9% 10 ML SYRINGE IVP PRN ×2 (19:41→23:53)
[2019-12-22] MEDS: guaiFENesin 100 MG/5 ML UDC PO SCH (21:07)
[2019-12-23] MEDS: MORPHINE 2 MG/ML CARPUJECT IVP PRN ×5 (02:00→23:43)
[2019-12-23] MEDS: oxyCODONE 5 MG TABLET PO PRN (04:08)
[2019-12-23] MEDS: PIPERACILLIN/TAZOBACTAM 3.375 GM in SODIUM CHLORIDE 0.9% MINIBAG 100 ML IV SCH ×3 (04:15→19:31)
[2019-12-23] MEDS: SODIUM CHLORIDE FLUSH 0.9% 10 ML SYRINGE IVP PRN ×4 (04:21→23:44)
[2019-12-23] MEDS: HYDROmorphone 0.5 MG/0.5 ML SYRINGE IVP PRN ×2 (05:32→12:54)
[2019-12-23] MEDS: PANTOPRAZOLE 40 MG TABLET PO SCH (06:39)
[2019-12-23] MEDS: SODIUM CHLORIDE FLUSH 0.9% 10 ML SYRINGE IVP SCH ×3 (11:23→23:44)
[2019-12-23] MEDS: guaiFENesin 600 MG TABLET PO SCH (11:23)
[2019-12-23] MEDS: guaiFENesin 100 MG/5 ML UDC PO SCH (11:23)
[2019-12-23] MEDS: ENOXAPARIN 40 MG/0.4 ML SYRINGE SUBQ SCH (12:22)
--- NOTE | 2019-12-23 13:37 | PROVIDER PROGRESS NOTE ---
Subjective - Prog Note Date Prog Note Date: 12/23/19 Prog Note Time: 13:33 - Subjective Pt reports feeling: No change Subjective: Rasheed is only intermittently responsive, becomes anxious easily. He is not eating or drinking today. He continues to have some periods of shortness of breath. He has family at the bedside, with plans to continue with Hospice cares in the next 1-2 days after his pneumonia is adequately treated. D/C plans are pending. Current Medications - Current Medications Current Medications: Active Medications: Acetaminophen (Tylenol) 650 mg PO Q8HR PRN Heparin Sodium (Beef Lung) 30 - 50 unit IVP PRN PRN Morphine 2mg IV, PRN Q2H Piperacillin Sod/Tazobactam (Sod 3.375 gm/ Sodium Chloride) Labetalol HCl (Trandate Inj) 10 mg IVP Q4H PRN Ondansetron HCl (Zofran Inj) 4 mg IVP Q4HR PRN Oxycodone HCl (Roxicodone) 5 mg PO Q4HR PRN HOME meds: Cholecalciferol (Vitamin D3) [Vitamin D3] 2,000 unit PO DAILY 04/26/17 Loperamide [Imodium] 2 mg PO Q4HR PRN MDD 16 mg 04/26/17 Cyanocobalamin (Vitamin B-12) [Vitamin B-12] 5,000 mcg PO DAILY 03/10/18 Ondansetron [Ondansetron Odt] 4 mg PO Q6HR PRN 03/10/18 Prochlorperazine [Compazine] 5 - 10 mg PO Q6H PRN 03/10/18 lisinopriL [Zestril] 5 mg PO DAILY 03/10/18 Lidocaine/Prilocain 2.5% Cream [Emla 2.5% Cream] 1 applic TOP UD PRN MDD portacath numbing 06/15/18 Senna [Senokot] 8.6 mg PO DAILY PRN 08/14/19 polyethylene glycoL 3350 [Miralax] 17 gm PO DAILY PRN 08/14/19 Objective - Vital Signs/Intake & Output Reviewed Vital Signs: Yes Vital Signs: Vital Signs x48h Temp Pulse Pulse Resp BP Pulse Ox 12/23/19 13:00 37.5 C 121 H 24 189/95 H 97 12/23/19 09:24 108 H 20 12/23/19 07:42 36.4 C L 112 H 20 144/77 H 95 Intake & Output: Intake & Output 12/20/19 12/21/19 12/22/19 12/23/19 23:59 23:59 23:59 23:59 Intake Total 1000 3345 1494 100 Output Total 1180 1450 1425 Balance 1000 2165 44 -1325 - Objective General Appearance: positive: Alert, Moderate distress, Lethargic Eyes Bilateral: positive: No lid inflammation ENT: positive: Dry mucous membranes Neck: positive: No JVD, Trachea midline, Stiff neck Respiratory: positive: Chest non-tender, No respiratory distress, Wheezes, Rhonchi Cardiovascular: positive: Regular rate & rhythm, No gallop, Tachycardia, Systolic murmur, Decreased pulse(s) Peripheral Pulses: 1+ Radial (R), 1+ Radial (L) Abdomen: positive: Non-tender, Nml bowel sounds, Guarding Back: positive: Nml inspection Skin: positive: No rash, Warm, Dry, Other (bronze toned skin, dry) Extremities: positive: Pedal edema (pitting moderate to right ankle) Neurologic/Psychiatric: positive: Disoriented to time, Weakness, Sensory loss, Slurred/abnml speech, Depressed mood/affect, Other (mouth is open) - Lab Results Fish Bones: 12/22/19 04:10 12/22/19 04:10 ABX Reporting Has patient been on IV antibiotics over the past 48 hours?: Yes Assessment/Plan - Problem List (1) Intractable low back pain Impression: -Likely due to progression of metastatic rectal adenocarcinoma, distended bladder -Pain management with dilaudid 0.5mg IV q2hrs prn Diastolic heart failure -Lasix x1 yesterday for low urine output, volume overload from prior IV fluids, and increased expiratory wheezing -Now in respiratory distress, tachycardia, and HTN, but dry mucous membranes -Poor PO intake, IV fluids off since yesterday -Urine appears yellow, not concentrated -Pitting edema to right ankle -Chest x-ray to evaluate for pleural effusions Urinary retention -Likely also worsened by pain from malignancy -Indwelling singer placed yesterday, which has eased the pain slightly Pneumonia -Etiology undetermined, cultures remain negative -Now with respiratory symptoms, more confusion, increased cough, and an oxygen need -Blood cultures drawn. 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 Moreno at [place] [facility] -No longer undergoing chemotherapy due to decline in clinical status -Patient prescribed Levaquin, now on IV Zosyn -Palliative care consult today with Amy Sonali, patients son, patients -[place] [facility]ice TIA -No residual effects known -Likely due to tobacco dependence, in remission Hypertension -Likely due to intractable pain, cancer pain -IV fluids stopped -Continue hydralazine, PRN -Offer dilaudid and oxycodone Hyperlipidemia -No statins COPD -Due to tobacco dependence -No home inhalers -Adding an expectorant for comfort today, duo-nebs PRN -Oxygen to keep oxygen greater than 92%, or for comfort CKD -Listed in history -Serum creatinine of 1.5, now 1.3 -No further labs, unless clinically indicated
[2019-12-23] MEDS ORDERED: MORPHINE 2 MG/ML CARPUJECT IVP PRN (13:40)
[2019-12-23 14:06] LABS: BASOPHILS # (AUTO) 0.1 10^3/uL (0.0-0.1); BASOPHILS % (AUTO) 0.5 %; HGB - HEMOGLOBIN 9.8 g/dL (14.0-18.0); LYMPHOCYTES # (AUTO) 0.2 10^3/uL (1.5-3.5); LYMPHOCYTES % (AUTO) 0.7 %; MEAN CORPUSCULAR HEMOGLOBIN 30.2 pg (27.0-31.0); MEAN CORPUSCULAR HGB CONC 32.5 g/dL (32.0-36.0); MEAN CORPUSCULAR VOLUME 92.9 fL (80.0-94.0); MEAN PLATELET VOLUME 10.6 fL (7.4-11.4); MONOCYTES # (AUTO) 2.5 10^3/uL (0.0-1.0); MONOCYTES % (AUTO) 10.1 %; NEUTROPHILS # (AUTO) 20.9 10^3/uL (1.5-6.6); NEUTROPHILS % (AUTO) 86.4 %; PLT - PLATELET COUNT 294 10^3/uL (130-450); RED BLOOD COUNT 3.25 10^6/uL (4.70-6.10); RED CELL DISTRIBUTION WIDTH 17.4 % (12.0-15.0); WHITE BLOOD COUNT 24.2 x10^3/uL (4.8-10.8)
[2019-12-23 14:21] LABS: CALCIUM 8.2 mg/dL (8.5-10.3); CREATININE 1.8 mg/dL (0.6-1.2); MAGNESIUM 1.6 mg/dL (1.7-2.8)
[2019-12-23 14:32] LABS: PLATELET ESTIMATE, MANUAL NORMAL (130-450,000) (NORMAL); PLATELET MORPHOLOGY NORMAL APPEARANCE (NORMAL); RBC MORPHOLOGY (MULTIPLE) 1+ HYPOCHROMASIA (NORMAL)
--- NOTE | 2019-12-23 14:36 | XRAY Report ---
Reason: hypoxia Procedure Date: 12/23/2019 Accession Number: [id number] / [id number] Procedure: XR - Chest 1 View X-Ray CPT Code: 83860 Final Report FULL RESULT: EXAM: CHEST RADIOGRAPHY EXAM DATE: 12/23/2019 01:43 PM. CLINICAL HISTORY: Hypoxia. COMPARISON: CHEST 1 VIEW 12/21/2019 2:10 AM. TECHNIQUE: 1 view. FINDINGS: The right internal jugular central venous Port-A-Cath is unchanged in positioning. Heart size is normal. Calcified plaque in the thoracic aorta. Redemonstrated mass in the right perihilar/right upper lobe region. No new consolidation. No pleural effusion or pneumothorax. The bones are osteopenic. IMPRESSION: 1. No acute cardiopulmonary findings. 2. Unchanged right lung mass. RADIA
[2019-12-23] MEDS ORDERED: MAGNESIUM SULFATE 2 GRAM 2 GM/50 ML BAG IV ONE (14:40)
[2019-12-23] MEDS ORDERED: SODIUM CHLORIDE 0.9% 500 ML IV ONE (14:43)
[2019-12-23] MEDS: LABETALOL 5 MG/1 ML 20 ML MDV IVP PRN (19:27)
[2019-12-23] MEDS: AZITHROMYCIN INJ 500 MG in SODIUM CHLORIDE 0.9% 250 ML IV SCH (19:42)
[2019-12-24] MEDS: MORPHINE 2 MG/ML CARPUJECT IVP PRN ×10 (04:03→23:45)
[2019-12-24] MEDS: SODIUM CHLORIDE FLUSH 0.9% 10 ML SYRINGE IVP PRN ×5 (04:03→18:29)
[2019-12-24] MEDS: PIPERACILLIN/TAZOBACTAM 3.375 GM in SODIUM CHLORIDE 0.9% MINIBAG 100 ML IV SCH ×3 (04:03→19:13)
[2019-12-24] MEDS: SODIUM CHLORIDE FLUSH 0.9% 10 ML SYRINGE IVP SCH ×2 (08:11→16:27)
[2019-12-24 09:28] LABS: BASOPHILS % (AUTO) 0.4 %; HGB - HEMOGLOBIN 9.4 g/dL (14.0-18.0); LYMPHOCYTES % (AUTO) 0.8 %; MEAN CORPUSCULAR HEMOGLOBIN 30.4 pg (27.0-31.0); MEAN CORPUSCULAR HGB CONC 32.3 g/dL (32.0-36.0); MEAN CORPUSCULAR VOLUME 94.2 fL (80.0-94.0); MEAN PLATELET VOLUME 11.4 fL (7.4-11.4); MONOCYTES % (AUTO) 10.3 %; PLT - PLATELET COUNT 306 10^3/uL (130-450); RED BLOOD COUNT 3.09 10^6/uL (4.70-6.10); RED CELL DISTRIBUTION WIDTH 17.8 % (12.0-15.0); WHITE BLOOD COUNT 25.4 x10^3/uL (4.8-10.8)
[2019-12-24 09:37] LABS: CALCIUM 8.2 mg/dL (8.5-10.3); CREATININE 2.4 mg/dL (0.6-1.2); MAGNESIUM 2.3 mg/dL (1.7-2.8)
[2019-12-24 10:09] LABS: DIFFERENTIAL COMMENT MANUA; PLATELET ESTIMATE, MANUAL NORMAL (130-450,000) (NORMAL); PLATELET MORPHOLOGY NORMAL APPEARANCE (NORMAL)
--- NOTE | 2019-12-24 11:49 | PROVIDER PROGRESS NOTE ---
Subjective - Prog Note Date Prog Note Date: 12/24/19 Prog Note Time: 11:43 - Subjective Pt reports feeling: Improved Subjective: Rasheed appears more alert and comfortable today. He is speaking out of context and is more confused, but pleasant. He plans to have several family members visit today. He continues to have symptoms of air hunger, back and rectal pain. His , Chanel is at the bedside. Current Medications - Current Medications Current Medications: Active Medications: Acetaminophen (Tylenol) 650 mg PO Q8HR PRN Azithromycin 500mg daily IV Heparin Sodium (Beef Lung) 30 - 50 unit IVP PRN PRN Morphine 2mg IV, PRN Q1H Piperacillin Sod/Tazobactam (Sod 3.375 gm/ Sodium Chloride) Normal saline @ 50mL per hour Labetalol HCl (Trandate Inj) 10 mg IVP Q4H PRN Ondansetron HCl (Zofran Inj) 4 mg IVP Q4HR PRN Oxycodone HCl (Roxicodone) 5 mg PO Q4HR PRN HOME meds: Cholecalciferol (Vitamin D3) [Vitamin D3] 2,000 unit PO DAILY 04/26/17 Loperamide [Imodium] 2 mg PO Q4HR PRN MDD 16 mg 04/26/17 Cyanocobalamin (Vitamin B-12) [Vitamin B-12] 5,000 mcg PO DAILY 03/10/18 Ondansetron [Ondansetron Odt] 4 mg PO Q6HR PRN 03/10/18 Prochlorperazine [Compazine] 5 - 10 mg PO Q6H PRN 03/10/18 lisinopriL [Zestril] 5 mg PO DAILY 03/10/18 Lidocaine/Prilocain 2.5% Cream [Emla 2.5% Cream] 1 applic TOP UD PRN MDD portacath numbing 06/15/18 Senna [Senokot] 8.6 mg PO DAILY PRN 08/14/19 polyethylene glycoL 3350 [Miralax] 17 gm PO DAILY PRN 08/14/19 Minocycline HCl 100 mg PO DAILY 08/16/19 Omeprazole 20 mg PO DAILY 08/16/19 Gabapentin 300 mg PO BID 12/21/19 hydroCHLOROthiazide [Hydrochlorothiazide] 25 mg PO DAILY 12/21/19 Objective - Vital Signs/Intake & Output Reviewed Vital Signs: Yes Vital Signs: Vital Signs x48h Temp Pulse Resp BP Pulse Ox 12/24/19 07:58 36.7 C 113 H 24 129/68 95 12/24/19 04:00 20 94 Intake & Output: Intake & Output 12/21/19 12/22/19 12/23/19 12/24/19 23:59 23:59 23:59 23:59 Intake Total 3345 1494 1100 100 Output Total 1180 1450 1825 100 Balance 2165 44 -725 0 - Objective General Appearance: positive: Alert, Moderate distress, Anxious Eyes Bilateral: positive: No lid inflammation ENT: positive: Pharyngeal erythema, Dry mucous membranes Neck: positive: Thyroid nml, No JVD, Trachea midline, Stiff neck Respiratory: positive: Chest non-tender, No respiratory distress, Wheezes, Rhonchi Cardiovascular: positive: Regular rate & rhythm, Tachycardia, Systolic murmur, Decreased pulse(s) Peripheral Pulses: 1+ Radial (R), 1+ Radial (L) Abdomen: positive: Non-tender, Nml bowel sounds, Guarding, Other (rounded, soft) Back: positive: Nml inspection Skin: positive: No rash, Warm, Dry, Other (bronze toned) Extremities: positive: Non-tender, Pedal edema, Joint swelling Neurologic/Psychiatric: positive: Disoriented to place, Disoriented to time, Weakness, Sensory loss, Slurred/abnml speech, Depressed mood/affect Reflexes: Bicep (R): 3+, Bicep (L): 3+ - Lab Results Fish Bones: 12/24/19 09:12 12/24/19 09:12 Other Labs: Lab Results x24hrs 12/24/19 12/24/19 12/23/19 Range/Units 09:12 09:12 14:00 WBC 25.4 H (4.8-10.8) x10^3/uL RBC 3.09 L (4.70-6.10) 10^6/uL Hgb 9.4 L (14.0-18.0) g/dL Hct 29.1 L (42.0-52.0) % MCV 94.2 H (80.0-94.0) fL MCH 30.4 (27.0-31.0) pg MCHC 32.3 (32.0-36.0) g/dL RDW 17.8 H (12.0-15.0) % Plt Count 306 (130-450) 10^3/uL MPV 11.4 (7.4-11.4) fL Neut # (Auto) Not Reportable (1.5-6.6) 10^3/uL Lymph # (Auto) Not Reportable (1.5-3.5) 10^3/uL Baker # (Auto) Not Reportable (0.0-1.0) 10^3/uL Eos # (Auto) Not Reportable (0.0-0.7) 10^3/uL Baso # (Auto) Not Reportable (0.0-0.1) 10^3/uL Absolute Nucleated RBC Not Reportable x10^3/uL Band Neuts % (Manual) Not Reportable Abnorm Lymph % (Manual) Not Reportable Nucleated RBC % Not Reportable /100WBC Neutrophils # (Manual) Not Reportable Lymphocytes # (Manual) Not Reportable Monocytes # (Manual) Not Reportable Eosinophils # (Manual) Not Reportable Basophils # (Manual) Not Reportable Differential Comment MANUA Manual Slide Review WBC Morphology 1+ SMUDGE CELLS (NORMAL) Platelet Estimate NORMAL (130-450,000) (NORMAL) Platelet Morphology NORMAL APPEARANCE (NORMAL) RBC Morph Micro Appear 1+ POIKILOCYTOSIS (NORMAL) Sodium 144 140 (135-145) mmol/L Potassium 4.6 4.1 (3.5-5.0) mmol/L Chloride 107 104 (101-111) mmol/L Carbon Dioxide 19 L 22 (21-32) mmol/L Anion Gap 18.0 H 14.0 H (6-13) BUN 47 H 32 H (6-20) mg/dL Creatinine 2.4 H 1.8 H (0.6-1.2) mg/dL Estimated GFR (MDRD) 26 L 37 L (>89) Glucose 86 97 (70-100) mg/dL Calcium 8.2 L 8.2 L (8.5-10.3) mg/dL Magnesium 2.3 1.6 L (1.7-2.8) mg/dL 12/23/19 Range/Units 14:00 WBC 24.2 H (4.8-10.8) x10^3/uL RBC 3.25 L (4.70-6.10) 10^6/uL Hgb 9.8 L (14.0-18.0) g/dL Hct 30.2 L (42.0-52.0) % MCV 92.9 (80.0-94.0) fL MCH 30.2 (27.0-31.0) pg MCHC 32.5 (32.0-36.0) g/dL RDW 17.4 H (12.0-15.0) % Plt Count 294 (130-450) 10^3/uL MPV 10.6 (7.4-11.4) fL Neut # (Auto) 20.9 H (1.5-6.6) 10^3/uL Lymph # (Auto) 0.2 L (1.5-3.5) 10^3/uL Baker # (Auto) 2.5 H (0.0-1.0) 10^3/uL Eos # (Auto) 0.0 (0.0-0.7) 10^3/uL Baso # (Auto) 0.1 (0.0-0.1) 10^3/uL Absolute Nucleated RBC 0.00 x10^3/uL Band Neuts % (Manual) Abnorm Lymph % (Manual) Nucleated RBC % 0.0 /100WBC Neutrophils # (Manual) Lymphocytes # (Manual) Monocytes # (Manual) Eosinophils # (Manual) Basophils # (Manual) Differential Comment Manual Slide Review Indicated WBC Morphology (NORMAL) Platelet Estimate NORMAL (130-450,000) (NORMAL) Platelet Morphology NORMAL APPEARANCE (NORMAL) RBC Morph Micro Appear 1+ HYPOCHROMASIA (NORMAL) Sodium (135-145) mmol/L Potassium (3.5-5.0) mmol/L Chloride (101-111) mmol/L Carbon Dioxide (21-32) mmol/L Anion Gap (6-13) BUN (6-20) mg/dL Creatinine (0.6-1.2) mg/dL Estimated GFR (MDRD) (>89) Glucose (70-100) mg/dL Calcium (8.5-10.3) mg/dL Magnesium (1.7-2.8) mg/dL ABX Reporting Has patient been on IV antibiotics over the past 48 hours?: Yes Assessment/Plan - Problem List (1) ERWIN (acute kidney injury) Impression: -Baseline serum creatinine is ~ 1.5, now up to 2.4 -Likely due to dehydration, lack of PO intake -Starting gentle hydration in the setting of illness with current treatment of pneumonia -Routine labs, monitor I/Os Intractable rectal pain -Likely due to progression of metastatic rectal adenocarcinoma, distended bladder -Complaints of low back and rectum -Also has shortness of breath, air hunger symptoms -Pain management with morphine Q2hrs, IV prn Diastolic heart failure -Lasix x1 on 12/22 for low urine output, volume overload from prior IV fluids, and increased expiratory wheezing -Now in respiratory distress, tachycardia, and HTN, but dry mucous membranes -Poor PO intake, IV fluids now restarted at gentle rate of 50 mL per hour -Urine appears a little more concentrated today -Pitting edema to BLEs -Chest x-ray to evaluate for pleural effusions Urinary retention -Likely also worsened by pain from malignancy -Indwelling singer placed on day #2 of admission, which has eased the pain slightly -Continue singer, treat pain Pneumonia -Etiology undetermined, cultures remain negative -Now with respiratory symptoms, more confusion, increased cough, and an oxygen need -Blood cultures drawn. CXR and CT abd/pelvis was unremarkable -First Chest x-ray may have shown PNA due to dehydration at the time -Patient unable to consume expectorants, duo-nebs, PRN -Chest x-ray shows no new infiltrates, no pleural effusions -Patient has not traveled to [place], [facility] or [place], nor has anyone in recent contact with him -Patient continues on IV Zosyn, added Azithromycin Loss of appetite -Patient has not had any meals since being in the hospital -Has enjoyed water, ice chips, spoon fed V8 drink Protein calorie malnutrition -Recent weight loss, now no appetite -Not a good candidate for appetite stimulant -A consequence of end stage cancer, end of life 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
[2019-12-24] MEDS ORDERED: SODIUM CHLORIDE 0.9% 1,000 ML IV SCH (12:00)
[2019-12-24] MEDS: AZITHROMYCIN INJ 500 MG in SODIUM CHLORIDE 0.9% 250 ML IV SCH (19:06)
[2019-12-25] MEDS: MORPHINE 2 MG/ML CARPUJECT IVP PRN ×8 (00:52→13:00)
[2019-12-25] MEDS: SODIUM CHLORIDE FLUSH 0.9% 10 ML SYRINGE IVP SCH ×4 (01:59→13:02)
[2019-12-25] MEDS: PIPERACILLIN/TAZOBACTAM 3.375 GM in SODIUM CHLORIDE 0.9% MINIBAG 100 ML IV SCH (03:55)
--- NOTE | 2019-12-25 07:25 | Discharge Plan ---
Discharge Plan Problem Reviewed?: Yes Disposition: 50 Hospice/Home DC/Xfer Condition: Stable Prescriptions: fentaNYL [Fentanyl 12mcg patch] 1 each TD Q3D #5 patch.td72 LORazepam [Lorazepam INTENSOL] 2 mg PO Q4H #30 ml Morphine Sulfate [Morphine Sulf Oral (Roxanol)] 10 mg PO Q1H PRN #30 ml PRN Reason: Pain/Dyspnea Diet: Regular Health Concerns: Rectal cancer Urinary retention ERWIN Pneumonia Low back pain Diastolic dysfunction heart failure Plan of Treatment: Transport to [facility] to enjoy your last days in a peaceful environment Provide pain relief Allow comfort (palliative) food/drink End of life care Care Goals: Prevent ED visits or hospitalizations Prevent pain Allow a natural Assessment: The patient was originally admitted for intractable low back pain which improved after inserting an indwelling singer catheter for urinary retention and with proper pain control. Since the patient has been getting routine IV morphine, he was started on a fentanyl patch to be continued at [facility]. He was found to have a WBC count, productive cough, and hypoxia so was started on treatment for pneumonia. He suffered from ERWIN after getting Lasix from volume overload. He is medically stable and can be discharged to [facility] via ambulance today. Follow-Up Care: Hospice No Smoking: If you smoke, Please STOP! Call for help.
--- NOTE | 2019-12-25 07:33 | DISCHARGE SUMMARY ---
Discharge Summary Admit Date: 12/21/19 Discharge Date: 12/25/19 Discharging Provider: SHYAM Gurrola Primary Care Provider: Amy Lyon Code Status: Do Not Attempt Resuscitation Condition at Discharge: Stable Discharge Disposition: 50 Hospice/Home DC/Xfer - DIAGNOSES Admission Diagnoses: Intractable low back pain Hypertensive urgency Metastasis from rectal cancer Leukocytosis Discharge Diagnoses with Status of Each Condition: ERWIN (acute kidney injury)-New on this admission, no longer treating End of life care-Ongoing, continue care at [facility] Intractable low back pain-Admitting diagnosis, treating with IV morphine, transitioned to fentanyl patch Diastolic CHF, chronic-Chronic, stable Urinary retention-Chronic, stable Pneumonia-New on this admission, no longer treating due to end of life cares Loss of appetite-Chronic, stable Protein calorie malnutrition-Chronic, stable 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 Sanders: Patient is a 74 y/o male with history of metastatic rectal carcinoma involving liver and the lungs who follows with Dr Destiney Montoya at the [facility] [place]. He presented to the ED with complain of intractable rectal and lower back pain. While he has had pain in this area for the past couple of years, it was very severe today to the point of being unable to walk. He normally takes 5-10 mg of oxycodone q4hrs prn at home. However this did not relief his pain today. In the ED he was given dilaudid 1mg IV X 2 with initial improvement of his pain. However attempting to get him in a seated position significantly exacerbates his pain. His starts dry heaving due to severe pain. He reports being able to walk unaided at home. However he was last seen at the [facility] on 12/19/19. During that visit it was noted that he had significantly declined compared to the previous week. He has become weaker and more tired. He complained of increased pain in his neck, back and right upper quadrant during that visit. As a result of his significant decline, chemotherapy was suspended. He was given a prescription for a 5-day course of levaquin. Tentative plan was to re-evaluate in a week or two to see if he would be a candidate for chemotherapy then. The option of hospice was discussed with him by Dr Moreno if it turns out that he is not a candidate. At bedside he is curled in a position on his left side. He is opposed to being moved because of significant pain. He denies chest pain, dyspnea or abdominal pain. He had a WBC of 18 and his SBP was as high as 200's. As a result of his presentation, he being admitted for further treatment. - HOSPITAL COURSE Hospital Course: The patient was originally admitted for intractable low back pain which improved after inserting an indwelling singer catheter for urinary retention and with proper pain control. Since the patient has been getting routine IV morphine, he was started on a fentanyl patch to be continued at [facility]. He was found to have a WBC count, productive cough, and hypoxia so was started on treatment for pneumonia. He suffered from ERWIN after getting Lasix from volume overload. He is medically stable and can be discharged to [facility] via ambulance today. *The patient will be transported with oxygen for his ongoing hypoxia during his hospital stay. On room air, the patients oxygen went down to 85%, quailifying him for oxygen to be worn continuously. I am ordering oxygen per nasal cannula to be worn continuously at 4L for his hypoxia, diagnosis COPD J44. - ALLERGIES Allergies/Adverse Reactions: Allergies Allergy/AdvReac Type Severity Reaction Status Date / Time No Known Drug Allergies Allergy Verified 12/20/19 21:42 - MEDICATIONS Home Medications: Ambulatory Orders Medication Instructions Recorded Confirmed LORazepam [Lorazepam INTENSOL] 2 mg PO Q4H #30 ml 12/25/19 Morphine Sulfate [Morphine Sulf 10 mg PO Q1H PRN #30 ml 12/25/19 Oral (Roxanol)] fentaNYL [Fentanyl 12mcg patch] 1 each TD Q3D #5 patch.td72 12/25/19 - PHYSICAL EXAM AT DISCHARGE General Appearance: positive: Moderate distress, Lethargic Eyes Bilateral: positive: No lid inflammation ENT: positive: Pharyngeal erythema, Dry mucous membranes Neck: positive: No JVD, Trachea midline Respiratory: positive: Chest non-tender, Wheezes, Rhonchi Cardiovascular: positive: No gallop, Tachycardia, Systolic murmur, Decreased pulse(s) Peripheral Pulses: positive: 1+ Abdomen: positive: Guarding, Abnml bowel sounds Skin: positive: No rash, Warm, Dry Extremities: positive: Pedal edema Neurologic/Psychiatric: positive: Disoriented to person, Disoriented to place, Disoriented to time, Weakness, Sensory loss, Slurred/abnml speech - LABS Result Diagrams: 12/24/19 09:12 12/24/19 09:12 - TIME SPENT Time Spent in Discharge (Minutes): 45
[2019-12-25] MEDS ORDERED: fentaNYL 12 MCG PATCH TOP SCH (08:00)
[2019-12-25 08:33] VITALS: BP 127/66
[2019-12-25] MEDS ORDERED: SCOPOLAMINE PATCH TOP SCH (09:00)
[2019-12-25] MEDS: SODIUM CHLORIDE FLUSH 0.9% 10 ML SYRINGE IVP PRN (13:02)
== END 2019-12-25 13:22 | disposition hospice, home (50) | DRG 194 ==
LOC: EDUNIT# → ED 20:53 → MS2 12-21 02:18 → OBSVTOIN 12-22 18:19
PROVIDERS: ADMIT Internal Medicine; ATTEND Nurse Practitioner
DX: J18.9 Pneumonia, unspecified organism (principal); C20 Malignant neoplasm of rectum; C78.7 Secondary malignant neoplasm of liver and intrahepatic bile duct; C78.00 Secondary malignant neoplasm of unspecified lung; J44.0 Chronic obstructive pulmonary disease with (acute) lower respiratory infection; E46 Unspecified protein-calorie malnutrition; I13.0 Hypertensive heart and chronic kidney disease with heart failure and stage 1 through stage 4 chronic kidney disease, or unspecified chronic kidney disease; N17.9 Acute kidney failure, unspecified; I50.32 Chronic diastolic (congestive) heart failure; G89.3 Neoplasm related pain (acute) (chronic); N18.9 Chronic kidney disease, unspecified; G62.0 Drug-induced polyneuropathy; R63.0 Anorexia; Z68.22 Body mass index [BMI] 22.0-22.9, adult; N40.1 Benign prostatic hyperplasia with lower urinary tract symptoms; R33.8 Other retention of urine; E86.0 Dehydration; F32.9 Major depressive disorder, single episode, unspecified; E78.5 Hyperlipidemia, unspecified; K21.9 Gastro-esophageal reflux disease without esophagitis; M19.90 Unspecified osteoarthritis, unspecified site; H91.90 Unspecified hearing loss, unspecified ear; Z66 Do not resuscitate; Z51.5 Encounter for palliative care; T45.1X5A Adverse effect of antineoplastic and immunosuppressive drugs, initial encounter; Y92.531 Health care provider office as the place of occurrence of the external cause; T50.1X5A Adverse effect of loop [high-ceiling] diuretics, initial encounter; Y92.230 Patient room in hospital as the place of occurrence of the external cause; Z99.81 Dependence on supplemental oxygen; Z79.891 Long term (current) use of opiate analgesic; Z90.49 Acquired absence of other specified parts of digestive tract; Z86.73 Personal history of transient ischemic attack (TIA), and cerebral infarction without residual deficits; Z87.891 Personal history of nicotine dependence
CPT/HCPCS: 36415; 71045; 74177; 80048; 80053; 81003; 83690; 83735; 84100; 84550; 85025; 85610; 87040; 96361; 96365; 96366; 96367; 96372; 96375; 96376; 99284; 99285; A9270; G0378; J1170; J1650; J3370; J3490; Q9967; 81001; 87086; 99233

== ENCOUNTER 2019-12-25 13:22 | Outpatient (CLI) | payer MEDICARE, OTHER | END 2019-12-25 13:23 | disposition hospice, home (50) | LOC: EMS 13:22 | PROVIDERS: ATTEND Surgery | DX: R52 Pain, unspecified (principal); R41.82 Altered mental status, unspecified; Z74.01 Bed confinement status | CPT/HCPCS: A0425; A0428 ==